=== PATIENT | male | born 1980 | race American Indian/Alaskan Native ===

== ENCOUNTER 2019-12-22 13:20 | Emergency (ER) | payer SELFPAY ==
--- NOTE | 2019-12-22 13:55 | Emergency Department Report ---
Blank Doc - Documentation Documentation: c/o of severe HTN with exertional dyspnea. non compliant with bp medicaitons and smokes tobacco. Plan PLAN EKG, BP control, labs and cant sleep flat.
--- NOTE | 2019-12-22 14:24 | XRay Report ---
CHEST 2 VIEWS INDICATION: Chest Pain. COMPARISON: None FINDINGS: Support devices: None. Heart: Within normal limits. Lungs/pleura: No acute air space or interstitial disease. No pneumothorax. Additional findings: None. IMPRESSION: No acute findings. Signer Name: Kobi Valentino Jr, MD Signed: 12/22/2019 2:19 PM Workstation Name: [id number]
[2019-12-22 14:29] LABS: Basophils % (Auto) 0.6 % (0.0-1.8); Eosinophils # (Auto) 0.3 K/mm3 (0.0-0.4); Eosinophils % (Auto) 5.1 % (0.0-4.3); Hematocrit 46.7 % (35.5-45.6); Hemoglobin 15.7 gm/dl (11.8-15.2); Lymphocytes # (Auto) 2.2 K/mm3 (1.2-5.4); Mean Corpuscular HGB Conc 34 % (32-34); Mean Corpuscular Volume 82 fl (84-94); Monocytes # (Auto) 0.4 K/mm3 (0.0-0.8); Monocytes % (Auto) 5.7 % (0.0-7.3); Platelet Count 293 K/mm3 (140-440); Red Blood Count 5.69 M/mm3 (3.65-5.03); Red Cell Distribution Width 15.5 % (13.2-15.2)
[2019-12-22 14:55] LABS: Alanine Aminotransferase 32 units/L (7-56); BUN/Creatinine Ratio 10; Blood Urea Nitrogen 9 mg/dL (9-20); Hemolysis Index 7
[2019-12-22] MEDS ORDERED: cloNIDine 0.2 MG TAB PO ONE (14:59)
[2019-12-22] MEDS ORDERED: POTASSIUM CHLORIDE ER 20 MEQ TAB PO ONE (15:06)
[2019-12-22 15:10] VITALS: BP 224/196
--- NOTE | 2019-12-22 15:12 | Emergency Department Report ---
HPI - General Chief Complaint: High BP Time Seen by Provider: 12/22/19 13:52 - HPI HPI: Room 5 The patient is a 39-year-old male present with a chief complaint of hypertension. The patient states he had a physical for his job yesterday and was found to be hypertensive. Patient denied complaints. Patient states he has been out of his blood pressure medication for several months. ED Past Medical Hx - Past Medical History Previous Medical History?: No Hx Hypertension: Yes - Surgical History Past Surgical History?: No - Family History Family history: no significant - Social History Smoking Status: Former Smoker (None since August 2019) Substance Use Type: None (Denies illicit drug use) - Medications Home Medications: Home Medications Medication Instructions Recorded Confirmed Last Taken Type amLODIPine 10 mg PO DAILY #90 tab 12/22/19 Unknown Rx hydroCHLOROthiazide [HCTZ] 25 mg PO QDAY #90 tablet 12/22/19 Unknown Rx ED Review of Systems ROS: Stated complaint: HBP Other details as noted in HPI Constitutional: no symptoms reported Eyes: denies: eye pain ENT: denies: throat pain Cardiovascular: denies: chest pain Endocrine: no symptoms reported Gastrointestinal: denies: abdominal pain Genitourinary: denies: dysuria Musculoskeletal: denies: back pain Neurological: denies: headache Physical Exam - Physical Exam Vital Signs: Vital Signs 12/22/19 12/22/19 13:39 15:04 Temperature 97.9 F Pulse Rate 87 Respiratory 20 18 Rate Blood Pressure 230/147 Blood Pressure 230/147 [Right] O2 Sat by Pulse 98 100 Oximetry Physical Exam: GENERAL: The patient is well-developed well-nourished male lying on stretcher not appearing to be in acute distress. [] HEENT: Normocephalic. Atraumatic. Extraocular motions are intact. Patient has moist mucous membranes. NECK: Supple. No meningitic signs are noted. There is no adenopathy noted. CHEST/LUNGS: Clear to auscultation. There is no respiratory distress noted. HEART/CARDIOVASCULAR: Regular. There is no tachycardia. There is no gallop rub or murmur. ABDOMEN: Abdomen is soft, nontender. Patient has normal bowel sounds. There is no abdominal distention. SKIN: There is no rash. There is no edema. There is no diaphoresis. NEURO: The patient is awake, alert, and oriented. The patient is cooperative. The patient has no focal neurologic deficits. The patient has normal speech. Cranial nerves II through XII grossly intact, no drift MUSCULOSKELETAL:There is no evidence of acute injury. ED Course Vital Signs 12/22/19 12/22/19 13:39 15:04 Temperature 97.9 F Pulse Rate 87 Respiratory 20 18 Rate Blood Pressure 230/147 Blood Pressure 230/147 [Right] O2 Sat by Pulse 98 100 Oximetry - Reevaluation(s) Reevaluation #1: 12/22/19 16:27 Blood pressure improved to 144/88 ED Medical Decision Making - Lab Data Result diagrams: 12/22/19 14:12 12/22/19 14:12 Laboratory Tests 12/22/19 12/22/19 14:12 14:12 WBC 6.4 RBC 5.69 H Hgb 15.7 H Hct 46.7 H MCV 82 L MCH 28 MCHC 34 RDW 15.5 H Plt Count 293 Lymph % (Auto) 35.0 [place] % (Auto) 5.7 Eos % (Auto) 5.1 H Baso % (Auto) 0.6 Lymph # 2.2 [place] # 0.4 Eos # 0.3 Baso # 0.0 Seg Neutrophils % 53.6 Seg Neutrophils # 3.4 Sodium 140 Potassium 3.3 L Chloride 106.5 Carbon Dioxide 19 L Anion Gap 18 BUN 9 Creatinine 0.9 Estimated GFR > 60 BUN/Creatinine Ratio 10 Glucose 161 H Calcium 9.0 Total Bilirubin 0.40 AST 22 ALT 32 Alkaline Phosphatase 64 Troponin T < 0.010 Total Protein 7.5 Albumin 4.0 Albumin/Globulin Ratio 1.1 - Radiology Data Radiology results: report reviewed (Chest x-ray), image reviewed (Chest x-ray) interpreted by me: Chest x-ray-no focal infiltrates, no pneumothorax Findings [facility] [address] [place] [address] XRay Report Signed Patient: RIAN PRIDE MR#: [id number] : 1980 Acct:[id number] Age/Sex: 39 / M ADM Date: 12/22/19 Loc: ED Attending Dr: Ordering Physician: DONTRELL WHITT Date of Service: 12/22/19 Procedure(s): XR chest routine 2V Accession Number(s): [id number] cc: DONTRELL WHITT Fluoro Time In Minutes: CHEST 2 VIEWS INDICATION: Chest Pain. COMPARISON: None FINDINGS: Support devices: None. Heart: Within normal limits. Lungs/pleura: No acute air space or interstitial disease. No pneumothorax. Additional findings: None. IMPRESSION: No acute findings. Signer N ministerio: Kobi Valentino Jr, MD Signed: 12/22/2019 2:19 PM Workstation Name: [id number] Transcribed By: TTR Dictated By: KOBI VALENTINO JR, MD Electronically Authenticated By: KOBI VALENTINO JR, MD Signed Date/Time: 12/22/191418 DD/ 18 TD/TT: - Differential Diagnosis Uncontrolled hypertension Critical care attestation.: If time is entered above; I have spent that time in minutes in the direct care of this critically ill patient, excluding procedure time. ED Disposition Clinical Impression: Uncontrolled hypertension Disposition: DC-01 TO HOME OR SELFCARE Is pt being admited?: No Does the pt Need Aspirin: No Condition: Stable Instructions: Hypertension (ED) Additional Instructions: Return to the emergency department should you develop worsening symptoms, inability to tolerate food or liquids, high fever or any other concerns Prescriptions: amLODIPine 10 mg PO DAILY #90 tab hydroCHLOROthiazide [HCTZ] 25 mg PO QDAY #90 tablet Referrals: ZULEYMA DANIELLE MD [Staff Physician] - 3-5 Days [facility] [Outside] - 3-5 Days Time of Disposition: 16:27
== END 2019-12-22 17:00 | disposition home or self-care (01) ==
LOC: ED 13:20
DX: I10 Essential (primary) hypertension (principal); Z87.891 Personal history of nicotine dependence
CPT/HCPCS: 36415; 71046; 80053; 84484; 85025

== ENCOUNTER 2021-09-21 08:11 | Inpatient (IN) | payer SELFPAY ==
[2021-09-21] MEDS ORDERED: hydrALAZINE 20 MG/1 ML INJ IV ONE (08:52)
--- NOTE | 2021-09-21 08:53 | Emergency Department Report ---
ED General Adult HPI - General Chief complaint: Weakness Stated complaint: My blood pressure is high, my body hurts, I have nausea, and chest pain Time Seen by Provider: 09/21/21 08:51 Source: patient, RN notes reviewed, old records reviewed Mode of arrival: Ambulatory Limitations: Physical Limitation - History of Present Illness Initial comments: The patient is a 41-year-old gentleman. He is not known to myself previously. He appears to have a history of morbid obesity and uncontrolled hypertension. The patient presents to the ER today with a few days of body aches, nausea, feeling unsteady, and chest pain, with mild coughing and retching. The patient denies fever, loss of taste and smell. The patient states he does not have an outpatient primary care doctor. The patient does not have a history of obstructive sleep apnea that he is aware of. The patient states his symptoms are constant for the past few days, and gradually getting worse. The chest pain is central, and does not radiate to the back, arms or neck. The patient states the chest pain is not sharp, tearing, or ripping, but he does feel very uncomfortable. -: Gradual, days(s) Location: chest Severity scale (0 -10): 0 Quality: aching Consistency: intermittent Improves with: none Worsens with: none - Related Data Previous Rx's Medication Instructions Recorded Last Taken Type amLODIPine 10 mg PO DAILY #90 tab 12/22/19 Unknown Rx hydroCHLOROthiazide [HCTZ] 25 mg PO QDAY #90 tablet 12/22/19 Unknown Rx Allergies Allergy/AdvReac Type Severity Reaction Status Date / Time No Known Allergies Allergy Verified 12/22/19 13:31 ED Review of Systems ROS: Stated complaint: HIGH BP Other details as noted in HPI Constitutional: malaise, weakness. denies: fever Eyes: denies: eye discharge ENT: denies: epistaxis Respiratory: denies: cough Cardiovascular: chest pain Gastrointestinal: nausea Genitourinary: denies: dysuria Musculoskeletal: myalgia. denies: back pain Neurological: weakness, abnormal gait Psychiatric: anxiety ED Past Medical Hx - Past Medical History Previous Medical History?: Yes Hx Hypertension: Yes - Surgical History Past Surgical History?: Yes Additional Surgical History: sx on femurs - Social History Smoking Status: Former Smoker (None since August 2019) Substance Use Type: None (Denies illicit drug use) - Medications Home Medications: Home Medications Medication Instructions Recorded Confirmed Last Taken Type amLODIPine 10 mg PO DAILY #90 tab 12/22/19 Unknown Rx hydroCHLOROthiazide [HCTZ] 25 mg PO QDAY #90 tablet 12/22/19 Unknown Rx ED Physical Exam - General Limitations: Physical Limitation General appearance: alert, anxious, in distress, obese - Head Head exam: Present: atraumatic, normocephalic - Eye Eye exam: Present: normal appearance, EOMI. Absent: nystagmus - ENT ENT exam: Present: normal exam, normal orophraynx, mucous membranes moist, normal external ear exam - Neck Neck exam: Present: normal inspection, full ROM. Absent: tenderness, meningi smus - Respiratory Respiratory exam: Present: normal lung sounds bilaterally. Absent: respiratory distress, wheezes, rales, rhonchi, stridor, decreased breath sounds - Cardiovascular Cardiovascular Exam: Present: normal rhythm, tachycardia, normal heart sounds. Absent: bradycardia, irregular rhythm, systolic murmur, diastolic murmur, rubs, gallop - GI/Abdominal GI/Abdominal exam: Present: soft. Absent: distended, tenderness, guarding, rebound, rigid, pulsatile mass - Rectal Rectal exam: Present: deferred - Extremities Exam Extremities exam: Present: normal inspection, other (2+ pulses noted in the bilateral upper and lower extremities. There is no palpable cord. negative Homans sign. Muscular compartments are soft. The pelvis is stable.). Absent: tenderness, pedal edema, joint swelling, calf tenderness - Back Exam Back exam: Present: normal inspection, full ROM. Absent: CVA tenderness (R), CVA tenderness (L), paraspinal tenderness, vertebral tenderness - Neurological Exam Neurological exam: Present: alert, oriented X3, abnormal gait (Unsteady gait), other (No facial droop. Tongue midline. Extraocular movements intact bilaterally. Facial sensation intact to light touch in V1, V2, V3 distribution bilaterally. 5 and a 5 strength in 4 extremities. Sensation intact to light touch in 4 extremities.). Absent: motor sensory deficit - Psychiatric Psychiatric exam: Present: anxious - Skin Skin exam: Present: warm, dry, intact, normal color. Absent: rash ED Course Vital Signs 09/21/21 09/21/21 09/21/21 08:34 09:40 09:52 Temperature 98.2 F Pulse Rate 105 H 88 91 H Respiratory 24 12 14 Rate Blood Pressure Blood Pressure 223/132 235/125 220/99 [Right] O2 Sat by Pulse 98 95 98 Oximetry 09/21/21 09/21/21 09:56 10:00 Temperature Pulse Rate 85 95 H Respiratory 12 10 L Rate Blood Pressure 207/95 207/95 Blood Pressure [Right] O2 Sat by Pulse 96 94 Oximetry - Reevaluation(s) Reevaluation #1: 09/21/21 09:53 Differential diagnosis, including but not limited to: Hypertensive emergency, acute coronary syndrome, aortic dissection, Press syndrome, obstructive sleep a pnea, morbid obesity Assessment and plan: 41-year-old gentleman, who is markedly tachycardic, and h ypertensive, who appears very uncomfortable, with an unsteady gait, last known neurologic well time more than 24 hours ago, with chest pain who appears uncomfortable, very concerning for hypertensive emergency. We will treat his pain aggressively, obtain emergent CT scan of the brain to exclude hemorrhage, and emergent CT angiogram chest abdomen pelvis to exclude aortic dissection. Have ordered him for pain medication, nausea medication and nitroglycerin drip. His EKG is not consistent with a STEMI. I suspect that tachycardia is likely secondary to pain and discomfort. He denies travel, surgery, immobilization, DVT/PE risk factors, and he is low risk by Wells criteria for pulmonary embo lism. Reassess after initial data points. Discussed plan of care with the patient, and if no emergent findings noted that would require transfer for higher level of care, patient will be admitted to the medical service for cardiac risk stratification, as well as hypertensive optimization. 09/21/21 11:17 Patient reassessed. He feels much improved. Blood pressure 180/[address] scan of the brain reviewed by myself, I do not appreciate a bleed. CT scan chest abdomen pelvis pending. Laboratory studies demonstrate transaminitis, which is likely a congestive hepatopathy, elevated proBNP, likely secondary to hypertensive cardiomyopathy, and hypokalemia which we will address 09/21/21 11:28 CT scan of the brain officially negative for acute findings. CT angiogram chest abdomen pelvis negative for acute findings. Blood pressure will be held at 180 systolic. Contacted neurology on-call, Dr. Funes. I discussed the patient's history, physical, laboratory studies and imaging studies and overall clinical impression. Assuming no dissection, which has been proven at this time, decrease blood pressure systolic to 180 mmHg. She is in agreement with blood pressure control, and advises that if patient has persistent neurologic symptoms while inpatient, inpatient team may consider getting MRI to evaluate for Press syndrome Contacted cardiology on-call, Dr. Chan. Discussed history, physical, laboratory studies and imaging studies, and clinical impression. [place] [facility] will follow in consultation. Contacted critical care physician on-call, Dr. Shah Discussed the history, physical, laboratory studies imaging studies and clinical impression. She will follow in consultation, and is in agreement with admitting this patient to the critical care unit. Awaiting callback from hospital physician to arrange admission. 09/21/21 11:[address] Green service on the critical care unit. ED Medical Decision Making - Lab Data Result diagrams: 09/21/21 09:26 09/21/21 09:26 Vital Signs 09/21/21 09/21/21 09/21/21 08:34 09:40 09:52 Temperature 98.2 F Pulse Rate 105 H 88 91 H Respiratory 24 12 14 Rate Blood Pressure 223/132 235/125 220/99 [Right] O2 Sat by Pulse 98 95 98 Oximetry Lab Results 09/21/21 09/21/21 09/21/21 Range/Units 09:26 09:26 09:26 WBC 6.2 (4.5-11.0) K/mm3 RBC 6.12 H (3.65-5.03) M/mm3 Hgb 15.5 H (11.8-15.2) gm/dl Hct 48.9 H (35.5-45.6) % MCV 80 L (84-94) fl MCH 25 L (28-32) pg MCHC 32 (32-34) % RDW 16.5 H (13.2-15.2) % Plt Count 278 (140-440) K/mm3 Lymph % (Auto) 29.5 (13.4-35.0) % [place] % (Auto) 13.1 H (0.0-7.3) % Eos % (Auto) 0.4 (0.0-4.3) % Baso % (Auto) 0.9 (0.0-1.8) % Lymph # (Auto) 1.8 (1.2-5.4) K/mm3 [place] # (Auto) 0.8 (0.0-0.8) K/mm3 Eos # (Auto) 0.0 (0.0-0.4) K/mm3 Baso # (Auto) 0.1 (0.0-0.1) K/mm3 Seg Neutrophils % 56.1 (40.0-70.0) % Seg Neutrophils # 3.5 (1.8-7.7) K/mm3 PT 16.1 H (12.2-14.9) Sec. INR 1.17 H (0.87-1.13) APTT 30.7 (24.2-36.6) Sec. Thrombin Time 18.7 (15.1-19.6) Sec. Sodium 139 (137-145) mmol/L Potassium 3.1 L (3.6-5.0) mmol/L Chloride 99.9 (98-107) mmol/L Carbon Dioxide 25 (22-30) mmol/L Anion Gap 17 mmol/L BUN 6 L (9-20) mg/dL Creatinine 0.7 L (0.8-1.3) mg/dL Estimated GFR > 60 ml/min BUN/Creatinine Ratio 9 % Glucose 123 H (75-100) mg/dL Calcium 8.8 (8.4-10.2) mg/dL Magnesium (1.7-2.3) mg/dL Total Bilirubin 0.50 (0.1-1.2) mg/dL AST 337 H (5-40) units/L ALT 527 H (7-56) units/L Alkaline Phosphatase 134 H (35-129) units/L Total Creatine Kinase 2846 H (55-170) units/L CK-MB (CK-2) 9.6 H (0.0-4.0) ng/mL CK-MB (CK-2) Rel Index 0.3 (0-4) Troponin T < 0.010 (0.00-0.029) ng/mL Total Protein 7.5 (6.3-8.2) g/dL Albumin 4.4 (3.9-5) g/dL Albumin/Globulin Ratio 1.4 % 09/21/21 Range/Units 09:26 WBC (4.5-11.0) K/mm3 RBC (3.65-5.03) M/mm3 Hgb (11.8-15.2) gm/dl Hct (35.5-45.6) % MCV (84-94) fl MCH (28-32) pg MCHC (32-34) % RDW (13.2-15.2) % Plt Count (140-440) K/mm3 Lymph % (Auto) (13.4-35.0) % [place] % (Auto) (0.0-7.3) % Eos % (Auto) (0.0-4.3) % Baso % (Auto) (0.0-1.8) % Lymph # (Auto) (1.2-5.4) K/mm3 [place] # (Auto) (0.0-0.8) K/mm3 Eos # (Auto) (0.0-0.4) K/mm3 Baso # (Auto) (0.0-0.1) K/mm3 Seg Neutrophils % (40.0-70.0) % Seg Neutrophils # (1.8-7.7) K/mm3 PT (12.2-14.9) Sec. INR (0.87-1.13) APTT (24.2-36.6) Sec. Thrombin Time (15.1-19.6) Sec. Sodium (137-145) mmol/L Potassium (3.6-5.0) mmol/L Chloride (98-107) mmol/L Carbon Dioxide (22-30) mmol/L Anion Gap mmol/L BUN (9-20) mg/dL Creatinine (0.8-1.3) mg/dL Estimated GFR ml/min BUN/Creatinine Ratio % Glucose (75-100) mg/dL Calcium (8.4-10.2) mg/dL Magnesium 1.90 (1.7-2.3) mg/dL Total Bilirubin (0.1-1.2) mg/dL AST (5-40) units/L ALT (7-56) units/L Alkaline Phosphatase (35-129) units/L Total Creatine Kinase 2889 H (55-170) units/L CK-MB (CK-2) (0.0-4.0) ng/mL CK-MB (CK-2) Rel Index (0-4) Troponin T (0.00-0.029) ng/mL Total Protein (6.3-8.2) g/dL Albumin (3.9-5) g/dL Albumin/Globulin Ratio % Vital Signs 09/21/21 09/21/21 09/21/21 08:34 09:40 09:52 Temperature 98.2 F Pulse Rate 105 H 88 91 H Respiratory 24 12 14 Rate Blood Pressure Blood Pressure 223/132 235/125 220/99 [Right] O2 Sat by Pulse 98 95 98 Oximetry 09/21/21 09/21/21 09:56 10:00 Temperature Pulse Rate 85 95 H Respiratory 12 10 L Rate Blood Pressure 207/95 207/95 Blood Pressure [Right] O2 Sat by Pulse 96 94 Oximetry - EKG Data -: EKG Interpreted by [place]s EKG shows normal: sinus rhythm Rate: normal - EKG Data When compared to previous EKG there are: previous EKG unavailable 09/21/21 09:55 The EKG is interpreted at 09: 20 Sinus rhythm, 97 bpm. Left axis deviation, left anterior fascicular block, normal P wave axis, poor R wave progression, QTC is prolonged, nonspecific ST abnormality. This is an abnormal EKG. This is not a STEMI. There is no prior EKG available for comparison - Radiology Data Radiology results: pending, report reviewed, image reviewed NONENHANCED CT SCAN OF THE HEAD: INDICATION / CLINICAL INFORMATION: 41 years Male; Extreme hypertension and dizziness.. TECHNIQUE: Routine CT head without contrast. All CT scans at this location are performed using CT dose reduction for ALARA by means of automated exposure control. COMPARISON: None. FINDINGS: BRAIN / INTRACRANIAL CONTENTS: No acute hemorrhage, mass effect, midline shift, hydrocephalus, or acute, large territorial infarct. No chronic infarct or focal atrophy. Normal brain volume and ventricular/sulcal size for age. No significant white matter abnormality. CRANIOCERVICAL JUNCTION: No significant abnormality. ORBITS: No significant abnormality of visualized orbits. SINUSES / MASTOIDS: No significant abnormality of the visualized paranasal sinuses or mastoid air cells. ADDITIONAL FINDINGS: Supraorbital swelling anteriorly IMPRESSION: No acute focal parenchymal lesion in the brain Signer Name: Drew Zuniga MD Signed: 09/21/2021 10:18 AM Workstation Name: [id number] CTA CHEST, ABDOMEN, AND PELVIS (AORTIC DISSECTION) INDICATION / CLINICAL INFORMATION: acute chest pain, htn, dissection protocol. TECHNIQUE: Axial CT images were obtained through the chest, abdomen, and pelvis before and after injection of 100 cc of Omnipaque 350 IV contrast. 3 plane MIP and/or 3D reconstructions were produced. All CT scans at this location are performed using CT dose reduction for ALARA by means of automated exposure control. COMPARISON: None available. FINDINGS: HEART: - Size: Normal. - [place] Coronary Atherosclerosis: None. - Pericardium: No pericardial effusion. THORACIC AORTA: - Dissection: No dissection. - Aneurysm: No aneurysm or pseudoaneurysm. - Ath erosclerosis: No significant atherosclerosis. - Location of Thoracic Aorta: 2.5 cm to the right of midline; 1.7 cm deep to posterior sternum; 5.8 cm deep to the skin. 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 No significant atherosclerosis. PULMONARY ARTERIES: No pulmonary emboli. CHEST VEINS: Single SVC of normal caliber as visualized to the right of midline. No significant abnormality. ABDOMINAL AORTA: - Dissection: No dissection. - Aneurysm: No aneurysm or pseudoaneurysm. - Atherosclerosis: No significant atherosclerosis. CELIAC TRUNK: No significant abnormality. SUPERIOR MESENTERIC ARTERY: No significant abnormality. RENAL ARTERIES: No significant abnormality. INFERIOR MESENTERIC ARTERY: No significant abnormality. RIGHT ILIAC ARTERIES: No acute abnormality. No significant atherosclerosis. LEFT ILIAC ARTERIES: No acute abnormality. No significant atherosclerosis. RIGHT FEMORAL ARTERIES: No acute abnormality. No significant a therosclerosis. LEFT FEMORAL ARTERIES: No acute abnormality. No significant atherosclerosis. ABDOMINOPELVIC VEINS: Single IVC of normal caliber to the right of midline. No significant abnormality. ADDITIONAL CHEST FINDINGS: No significant additional findings. Lungs are clear. There is no pneumothorax. No adenopathy is seen. ADDITIONAL ABDOMINOPELVIC FINDINGS: The liver, spleen, pancreas, right adrenal gland, kidneys, and bowel show no acute abnormality. There is no obstruction, inflammation, or free air. There is a 1.6 cm left adrenal nodule SKELETAL SYSTEM: Intramedullary nails are noted in the femurs. No acute osseous abnormality is seen. IMPRESSION: 1. There is no dissection. No acute abnormality is seen. 2. There is a 1.6 cm left adrenal nodule which is indeterminate. Signer Name: Guy Cannon MD Signed: 09/21/2021 10:17 AM Workstation Name: [id number] Critical Care Time: Yes Critical care time in (mins) excluding proc time.: 45 Critical care attestation.: If time is entered above; I have spent that time in minutes in the direct care of this critically ill patient, excluding procedure time. ED Disposition Clinical Impression: Hypertensive emergency, Acute chest pain, Transaminitis, Morbid obesity Disposition: ADMITTED INPATIENT Is pt being admited?: Yes Does the pt Need Aspirin: Yes Condition: Serious Instructions: Chest Pain (ED), Hypertension (ED) Referrals: PRIMARY CARE, [Primary Care Provider] - 3-5 Days Heart Score - HEART Score History: Moderately suspicious EKG: Non-specific Age: < 45 Risk factors: > 3 risk factors or hx of atherosclerotic disease Troponin: < normal limit HEART Score: 4 - EKG Read Time Time EKG Completed: 09:20 EKG Read Time: 09:20 - Critical Actions Critical Actions: 4-6 pts:12-16.6% risk of adverse cardiac event. Should be admitted
[2021-09-21] MEDS ORDERED: MORPHINE 4 MG/1 ML INJ IV ONE (09:11)
[2021-09-21] MEDS ORDERED: ONDANSETRON 4 MG/2 ML INJ IV ONE (09:11)
[2021-09-21] MEDS ORDERED: NITROGLYCERIN DRIP 50 MG/250 ML BOTTLE IV ONE (09:11)
[2021-09-21 10:06] LABS: Basophils # (Auto) 0.1 K/mm3 (0.0-0.1); Basophils % (Auto) 0.9 % (0.0-1.8); Eosinophils % (Auto) 0.4 % (0.0-4.3); Hematocrit 48.9 % (35.5-45.6); Hemoglobin 15.5 gm/dl (11.8-15.2); Lymphocytes # (Auto) 1.8 K/mm3 (1.2-5.4); Lymphocytes % (Auto) 29.5 % (13.4-35.0); Mean Corpuscular HGB Conc 32 % (32-34); Mean Corpuscular Volume 80 fl (84-94); Monocytes # (Auto) 0.8 K/mm3 (0.0-0.8); Monocytes % (Auto) 13.1 % (0.0-7.3); Platelet Count 278 K/mm3 (140-440); Red Blood Count 6.12 M/mm3 (3.65-5.03); Red Cell Distribution Width 16.5 % (13.2-15.2)
[2021-09-21 10:07] LABS: INR 1.17 (0.87-1.13)
[2021-09-21 10:08] LABS: Partial Thromboplastin Time 30.7 Sec. (24.2-36.6); Thrombin Time 18.7 Sec. (15.1-19.6)
[2021-09-21 10:29] LABS: Alanine Aminotransferase 527 units/L (7-56); Albumin 4.4 g/dL (3.9-5); Blood Urea Nitrogen 6 mg/dL (9-20); Calcium 8.8 mg/dL (8.4-10.2); Creatine Kinase MB 9.6 ng/mL (0.0-4.0); Hemolysis Index 9
[2021-09-21 10:36] LABS: BUN/Creatinine Ratio 9
--- NOTE | 2021-09-21 11:16 | Emergency Department Report ---
Blank Doc - Documentation Documentation: [place] [facility] Consult Note # Demographics Consult Type: General Neurology Patient Location: Emergency Room First Name: Herbie Last Name: Jack Date of : 1980 Age: 41 Gender: Male Facility: [facility] Time of Initial Page (Eastern Time): 09/21/2021, 11:03 Time of Return Call (Eastern Time): 09/21/2021, 11:03 Phone Only Consult: 41yo M present with elevated BP, nausea, dizziness and atypical chest pain. BP was very elevated on arrival. pt to be admitted for BP control. discussed ok to lower BP per standard and monitor for any neuro symptoms. treating team might consider MRI brain if neuro symptoms persist # HPI History: 41yo M present with elevated BP, nausea, dizziness and atypical chest pain. BP was very elevated on arrival. # PMH-FH-SH Past Medical History: hypertension obese # [employer]istics Telemedicine: phone only
--- NOTE | 2021-09-21 11:21 | Cat Scan Report ---
CTA CHEST, ABDOMEN, AND PELVIS (AORTIC DISSECTION) INDICATION / CLINICAL INFORMATION: acute chest pain, htn, dissection protocol. TECHNIQUE: Axial CT images were obtained through the chest, abdomen, and pelvis before and after inje ction of 100 cc of Omnipaque 350 IV contrast. 3 plane MIP and/or 3D reconstructions were produced. Al l CT scans at this location are performed using CT dose reduction for ALARA by means of automated exp osure control. COMPARISON: None available. FINDINGS: HEART: - Size: Normal. - [place] Coronary Atherosclerosis: None. - Pericardium: No pericardial effusion. THORACIC AORTA: - Dissection: No dissection. - Aneurysm: No aneurysm or pseudoaneurysm. - Atherosclerosis: No significant atherosclerosis. - Location of Thoracic Aorta: 2.5 cm to the right of midline; 1.7 cm deep to posterior sternum; 5.8 c m deep to the skin. 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 No signific ant atherosclerosis. PULMONARY ARTERIES: No pulmonary emboli. CHEST VEINS: Single SVC of normal caliber as visualized to the right of midline. No significant abnor mality. ABDOMINAL AORTA: - Dissection: No dissection. - Aneurysm: No aneurysm or pseudoaneurysm. - Atherosclerosis: No significant atherosclerosis. CELIAC TRUNK: No significant abnormality. SUPERIOR MESENTERIC ARTERY: No significant abnormality. RENAL ARTERIES: No significant abnormality. INFERIOR MESENTERIC ARTERY: No significant abnormality. RIGHT ILIAC ARTERIES: No acute abnormality. No significant atherosclerosis. LEFT ILIAC ARTERIES: No acute abnormality. No significant atherosclerosis. RIGHT FEMORAL ARTERIES: No acute abnormality. No significant atherosclerosis. LEFT FEMORAL ARTERIES: No acute abnormality. No significant atherosclerosis. ABDOMINOPELVIC VEINS: Single IVC of normal caliber to the right of midline. No significant abnormalit y. ADDITIONAL CHEST FINDINGS: No significant additional findings. Lungs are clear. There is no pneumotho rax. No adenopathy is seen. ADDITIONAL ABDOMINOPELVIC FINDINGS: The liver, spleen, pancreas, right adrenal gland, kidneys, and yannick wel show no acute abnormality. There is no obstruction, inflammation, or free air. There is a 1.6 cm left adrenal nodule SKELETAL SYSTEM: Intramedullary nails are noted in the femurs. No acute osseous abnormality is seen. IMPRESSION: 1. There is no dissection. No acute abnormality is seen. 2. There is a 1.6 cm left adrenal nodule which is indeterminate. Signer Name: Guy Cannon MD Signed: 09/21/2021 11:17 AM Workstation Name: [id number]
--- NOTE | 2021-09-21 11:23 | Cat Scan Report ---
NONENHANCED CT SCAN OF THE HEAD: INDICATION / CLINICAL INFORMATION: 41 years Male; Extreme hypertension and dizziness.. TECHNIQUE: Routine CT head without contrast. All CT scans at this location are performed using CT dos e reduction for ALARA by means of automated exposure control. COMPARISON: None. FINDINGS: BRAIN / INTRACRANIAL CONTENTS: No acute hemorrhage, mass effect, midline shift, hydrocephalus, or acu te, large territorial infarct. No chronic infarct or focal atrophy. Normal brain volume and ventricul ar/sulcal size for age. No significant white matter abnormality. CRANIOCERVICAL JUNCTION: No significant abnormality. ORBITS: No significant abnormality of visualized orbits. SINUSES / MASTOIDS: No significant abnormality of the visualized paranasal sinuses or mastoid air cem ls. ADDITIONAL FINDINGS: Supraorbital swelling anteriorly IMPRESSION: No acute focal parenchymal lesion in the brain Signer Name: Drew Zuniga MD Signed: 09/21/2021 11:18 AM Workstation Name: [id number]
[2021-09-21] MEDS ORDERED: ASPIRIN 81 MG TAB CHEW PO ONE (11:32)
[2021-09-21] MEDS ORDERED: SODIUM CHLORIDE 0.9% 500 ML 500 ML ONE (12:09)
[2021-09-21] MEDS: POTASSIUM CHLORIDE 10 MEQ 10 MEQ/100 ML BAG IV SCH ×4 (12:16→17:17)
--- NOTE | 2021-09-21 13:29 | History and Physical Report ---
History of Present Illness Chief complaint: I do not feel good History of present illness: 41 YO Male with HTN, Obesity Hypoventilation Syndrome, Medication Noncompliance presents to ED for evaluation. Patient reports "I do not feel good". Patient states that he has experienced chest discomfort, weakness, body aches, feeling unsteady over the past 3 days with persistent and intermittent symptoms over the same timeframe. Patient transported to [facility] via private vehicle for further care and evaluation of the aforementioned symptoms. The patient was seen and evaluated in the emergency department. All lab and imaging studies reviewed. Patient was found to have a blood pressure of 235/125 which is consistent with hypertensive emergency suspected secondary to medication noncompliance. Patient also found to have rhabdomyolysis, and elevated liver function tests. Patient initiated on nitro drip with mild improvement in patient blood pressure. Patient subsequently initiated on nicardipine drip and admitted to [facility] for further care due to increased risk of worsening symptoms. Patient denies fever, chills, chest pain, palpitation, productive cough, skin rash, recent ill contacts, unilateral leg swelling, calf pain, individual/family history of DVT/PE/bleeding/blood clotting disorders, or known exposure to COVID-19. Patient denies nicotine use, alcohol use, or use of herbal medication. No prior admission for review. All medication listed at time of admission has been reconciled. Advanced care planning conducted in ED. Past History Past Medical History: hypertension, other (see Hpi) Past Surgical History: Other (Leg surgery) Social history: single Family history: diabetes, hypertension Medications and Allergies Allergies Allergy/AdvReac Type Severity Reaction Status Date / Time No Known Allergies Allergy Verified 12/22/19 13:31 Home Medications Medication Instructions Recorded Confirmed Last Taken Type amLODIPine 10 mg PO DAILY #90 tab 12/22/19 Unknown Rx hydroCHLOROthiazide [HCTZ] 25 mg PO QDAY #90 tablet 12/22/19 Unknown Rx Active Meds: Active Medications Amlodipine Besylate (Amlodipine 10 Mg Tab) 10 mg PO QDAY [facility] Hydralazine HCl (Hydralazine 20 Mg/1 Ml Inj) 10 mg IV Q6H PRN PRN Reason: Hypertension Hydrochlorothiazide (Hydrochlorothiazide 25 Mg Tab) 25 mg PO QDAY [facility]EB[facility] Nitroglycerin/Dextrose (Tridil Drip 50mg/250ml) 50 mg in 250 mls @ 3 mls/hr IV TITR ONE; Protocol Stop: 09/24/21 20:30 Last Admin: 09/21/21 09:39 Dose: 10 mcg/min, 3 mls/hr Documented by: Potassium Chloride (Kcl 10meq/100ml) 10 meq in 100 mls @ 100 mls/hr IV Q1H ESTEBAN Stop: 09/21/21 14:59 Last Admin: 09/21/21 12:16 Dose: 100 mls/hr Documented by: Review of Systems Constitutional: weakness, no weight loss, no weight gain, no fever, no chills Ears, nose, mouth and throat: no ear pain, no ear discharge, no tinnitis, no decreased hearing, no nose pain Cardiovascular: no chest pain, no orthopnea, no palpitations, no rapid/irregular heart beat, no edema, no syncope Respiratory: no cough, no excessive sputum, no shortness of breath Gastrointestinal: no abdominal pain, no nausea, no vomiting, no constipation, no change in bowel habits Genitourinary Male: no hematuria, no flank pain, no discharge, no urinary frequency, no urinary hesitancy, no incontinence Rectal: no pain, no incontinence Musculoskeletal: no neck stiffness, no neck pain, no arm numbness/tingling, no low back pain, no shooting leg pain Integumentary: no rash, no pruritis, no sores, no boils Neurological: no head injury, no transient paralysis, no paralysis, no weakness, no numbness, no seizures, no tremors Psychiatric: no anxiety, no change in sleep habits, no insomnia, no hypersomnia, no change in appetite, no change in libido Endocrine: no cold intolerance, no excessive thirst, no polydipsia, no polyuria, no nocturia, no excessive sweating Hematologic/Lymphatic: no easy bruising, no lymphadenopathy Allergic/Immunologic: no urticaria, no allergic rhinitis, no wheezing, no anap hylaxis, no angioedema Exam - Constitutional Vitals: Temp Pulse Resp BP Pulse Ox 98.2 F 97 H 11 L 194/95 96 09/21/21 08:34 09/21/21 12:06 09/21/21 13:00 09/21/21 13:00 09/21/21 13:00 General appearance: Present: mild distress, obese - EENT Eyes: Present: PERRL ENT: hearing intact, clear oral mucosa - Neck Neck: Present: supple, normal ROM - Respiratory Respiratory effort: normal Respiratory: bilateral: CTA - Cardiovascular Heart Sounds: Present: S1 & S2. Absent: rub, click - Extremities Extremities: pulses symmetrical, No edema Peripheral Pulses: within normal limits - Abdominal General gastrointestinal: Present: soft, non-tender, non-distended, normal bowel sounds Male genitourinary: Present: normal - Integumentary Integumentary: Present: clear, warm, dry - Musculoskeletal Musculoskeletal: gait normal, strength equal bilaterally - Psychiatric Psychiatric: appropriate mood/affect, intact judgment & insight - Neurologic Neurologic: CNII-XII intact, moves all extremities HEART Score - HEART Score EKG: Non-specific Age: < 45 Risk factors: > 3 risk factors or hx of atherosclerotic disease Troponin: Troponin T < 0.010 ng/mL (0.00-0.029) 09/21/21 09:26 Troponin: < normal limit - Critical Actions Critical Actions: 4-6 pts:12-16.6% risk of adverse cardiac event. Should be admitted Results - Labs CBC & Chem 7: 09/21/21 09:26 09/21/21 09:26 Labs: Abnormal lab results 09/21/21 09/21/21 09/21/21 Range/Units 09:26 09:26 09:26 RBC 6.12 H (3.65-5.03) M/mm3 Hgb 15.5 H (11.8-15.2) gm/dl Hct 48.9 H (35.5-45.6) % MCV 80 L (84-94) fl MCH 25 L (28-32) pg RDW 16.5 H (13.2-15.2) % [place] % (Auto) 13.1 H (0.0-7.3) % PT 16.1 H (12.2-14.9) Sec. INR 1.17 H (0.87-1.13) Potassium 3.1 L (3.6-5.0) mmol/L BUN 6 L (9-20) mg/dL Creatinine 0.7 L (0.8-1.3) mg/dL Glucose 123 H (75-100) mg/dL AST 337 H (5-40) units/L ALT 527 H (7-56) units/L Alkaline Phosphatase 134 H (35-129) units/L Total Creatine Kinase 2846 H (55-170) units/L CK-MB (CK-2) 9.6 H (0.0-4.0) ng/mL 09/21/21 Range/Units 09:26 RBC (3.65-5.03) M/mm3 Hgb (11.8-15.2) gm/dl Hct (35.5-45.6) % MCV (84-94) fl MCH (28-32) pg RDW (13.2-15.2) % [place] % (Auto) (0.0-7.3) % PT (12.2-14.9) Sec. INR (0.87-1.13) Potassium (3.6-5.0) mmol/L BUN (9-20) mg/dL Creatinine (0.8-1.3) mg/dL Glucose (75-100) mg/dL AST (5-40) units/L ALT (7-56) units/L Alkaline Phosphatase (35-129) units/L Total Creatine Kinase 2889 H (55-170) units/L CK-MB (CK-2) (0.0-4.0) ng/mL Assessment and Plan - Patient Problems (1) Hypertensive emergency Current Visit: Yes Status: Acute Plan to address problem: Patient admitted to IMCU and initiated on nicardipine drip, continue medical management, blood pressure check as per nursing care protocol: Supportive care. Titrate nicardipine drip to systolic blood pressure less than 135 mmHg. Urine drug screen. (2) Rhabdomyolysis Current Visit: Yes Status: Acute Qualifiers: Encounter type: initial encounter Plan to address problem: Supportive care, IV fluid resuscitation therapy, repeat CK level in a.m. (3) Obesity hypoventilation syndrome Current Visit: Yes Status: Acute Plan to address problem: Balanced diet, increase physical activity at discharge, outpatient pulmonary follow-up for sleep study. (4) Hypokalemia Current Visit: Yes Status: Acute Plan to address problem: Repleted in ED. Repeat BMP in a.m. (5) Noncompliance Current Visit: Yes Status: Acute Plan to address problem: Patient counseled regarding medication noncompliance. Patient informed of increased risk of worsening symptoms and increased risk of heart failure and with continued noncompliance. Patient acknowledges understanding in structions. (6) DVT prophylaxis Current Visit: Yes Status: Acute Plan to address problem: SCDs bilateral lower extremities while in bed. (7) Advance care planning Current Visit: Yes Status: Acute Plan to address problem: Disease education conducted, care plan discussed, diagnoses discussed, prognosis discussed, patient is full code. Patient informed of increased risk of worsening symptoms or development of heart failure and early if continued noncompliance and lack of outpatient medical follow-up. Patient acknowledges understanding instructions. +30 minutes.
[2021-09-21 13:46] LABS: Bilirubin,Urine NEG (Negative); Blood,Urine SM (Negative); Color,Urine Yellow (Yellow); Mucus,Urine FEW /HPF; Urobilinogen,Urine < 2.0 mg/dL (<2.0); WBC,Urine < 1.0 /HPF (0.0-6.0)
[2021-09-21 13:52] LABS: Amphetamine Screen,Urine Negative; Benzodiazepines Screen,Urine Negative; Cannabinoid Screen,Urine Negative; Cocaine Screen,Urine Negative; Methadone Screen,Urine Negative; Opiate Screen,Urine Negative
[2021-09-21] MEDS: amLODIPine 10 MG TAB PO SCH (13:59)
[2021-09-21] MEDS ORDERED: SODIUM CHLORIDE 0.9% 1000 ML 1,000 ML ONE (14:01)
[2021-09-21] MEDS ORDERED: oxyCODONE /ACETAMINOPHEN 5-325MG TAB PO PRN (14:11)
[2021-09-21] MEDS ORDERED: HYDROmorphone 1 MG/1 ML INJ IV PRN (14:11)
[2021-09-21] MEDS ORDERED: ACETAMINOPHEN 325 MG TAB PO PRN (14:11)
[2021-09-21] MEDS: hydrALAZINE 20 MG/1 ML INJ IV PRN (14:21)
[2021-09-21] MEDS: niCARdipine 50 MG in SODIUM CHLORIDE 0.9% 250ML 230 ML IV SCH (18:30)
[2021-09-21] MEDS ORDERED: ZOLPIDEM 5 MG TAB PO PRN (22:12)
[2021-09-21] MEDS ORDERED: ZOLPIDEM 5 MG TAB PO STA (22:12)
[2021-09-22] MEDS: hydrALAZINE 20 MG/1 ML INJ IV PRN ×3 (05:22→20:01)
[2021-09-22] MEDS: niCARdipine 50 MG in SODIUM CHLORIDE 0.9% 250ML 230 ML IV SCH (05:22)
[2021-09-22 05:52] LABS: Blood Urea Nitrogen 6 mg/dL (9-20); Calcium 8.5 mg/dL (8.4-10.2); Hemolysis Index 12
[2021-09-22 05:56] LABS: BUN/Creatinine Ratio 9
--- NOTE | 2021-09-22 07:52 | Consultation ---
History of Present Illness Consult date: 09/22/21 Requesting physician: HAIR THAO Reason for consult: other (Hypertensive urgency requiring nitroglycerine infusion) History of present illness: 41 YO Male with HTN, Obesity Hypoventilation Syndrome, Medication Noncompliance presents to ED for evaluation. Patient reports "I do not feel good". Patient states that he has experienced chest discomfort, weakness, body aches, feeling unsteady over the past 3 days with persistent and intermittent symptoms over the same timeframe. Patient transported to [facility] via private vehicle for further care and evaluation of the aforementioned symptoms. The patient was seen and evaluated in the emergency department. All lab and imaging studies reviewed. Patient was found to have a blood pressure of 235/125 which is consistent with hypertensive emergency suspected secondary to medication noncompliance. He states he has no insurance coverage. Patient also found to have rhabdomyolysis, and elevated liver function tests. Patient was initiated on nitro drip with mild improvement in patient blood pressure. Patient subsequently initiated on nicardipine drip and admitted to ICU for further care due to increased risk of worsening symptoms. Patient denies fever, chills, chest pain, palpitation, productive cough, skin rash, recent ill contacts, unilateral leg swelling, calf pain, individual/family history of DVT/PE/bleeding/blood clotting disorders, or known exposure to COVID- 19. Patient denies nicotine use, alcohol use, or use of herbal medication Past History Past Medical History: hypertension, other (see Hpi) Past Surgical History: Other (Leg surgery) Social history: single Family history: diabetes, hypertension Medications and Allergies Allergies Allergy/AdvReac Type Severity Reaction Status Date / Time No Known Allergies Allergy Verified 12/22/19 13:31 Home Medications Medication Instructions Recorded Confirmed Last Taken Type amLODIPine 10 mg PO DAILY #90 tab 12/22/19 09/22/21 Unknown Rx hydroCHLOROthiazide [HCTZ] 25 mg PO QDAY #90 tablet 12/22/19 09/22/21 Unknown Rx Active Meds: Active Medications Acetaminophen (Acetaminophen 325 Mg Tab) 650 mg PO Q6H PRN PRN Reason: Pain MILD(1-3)/Fever >100.5/[place] Amlodipine Besylate (Amlodipine 10 Mg Tab) 10 mg PO QDAY ESTEBAN Last Admin: 09/21/21 13:59 Dose: 10 mg Documented by: Hydralazine HCl (Hydralazine 20 Mg/1 Ml Inj) 10 mg IV Q6H PRN PRN Reason: Hypertension Last Admin: 09/22/21 05:22 Dose: 10 mg Documented by: Hydrochlorothiazide (Hydrochlorothiazide 25 Mg Tab) 25 mg PO QDAY [facility] Hydromorphone HCl (Hydromorphone 1 Mg/1 Ml Inj) 0.5 mg IV Q23H PRN PRN Reason: Pain , Severe (7-10) Nicardipine HCl 50 mg/ Sodium (Chloride) 250 mls @ 25 mls/hr IV TITR ESTEBAN; Protocol Last Admin: 09/22/21 05:22 Dose: 10 mg/hr, 50 mls/hr Documented by: Potassium Chloride (Kcl 10meq/100ml) 10 meq in 100 mls @ 100 mls/hr IV Q1H ESTEBAN Stop: 09/22/21 11:59 Oxycodone/Acetaminophen (Oxycodone /Acetaminophen 5-325mg Tab) 1 tab PO Q16H PRN PRN Reason: Pain, Moderate (4-6) Sodium Chloride (Sodium Chloride 0.9% 10 Ml Flush Syringe) 10 ml IV BID ESTEBAN Last Admin: 09/21/21 21:48 Dose: 10 ml Documented by: Sodium Chloride (Sodium Chloride 0.9% 10 Ml Flush Syringe) 10 ml IV PRN PRN PRN Reason: LINE FLUSH Review of Systems All systems: negative (as documented in HPI) Physical Examination Vital signs: Vital Signs Temp Pulse Resp BP Pulse Ox 98.2 F 105 H 24 223/132 98 09/21/21 08:34 09/21/21 08:34 09/21/21 08:34 09/21/21 08:34 09/21/21 08:34 General appearance: no acute distress, alert, other (morbidly obese) Eyes: non-icteric ENT: oropharynx moist Neck: supple, no lymphadenopathy, no JVD Effort: mildly labored Ascultation: Bilateral: clear, diminished breath sounds Cardiovascular: regular rate and rhythm (tachycardia), other (S1,S2) Gastrointestinal: normoactive bowel sounds, soft, non-tender, non-distended Integumentary: normal Extremities: no cyanosis, no edema, pink and warm, pulses normal Musculoskeletal: no deformities Gait: normal gait normal mental status, non-focal exam, pupils equal and round, CN II-XII normal, motor strength normal and mood appropriate, affect normal Results - Laboratory Findings CBC and BMP: 09/23/21 04:32 09/23/21 04:32 PT/INR, D-dimer PT 16.1 Sec. (12.2-14.9) H 09/21/21 09:26 INR 1.17 (0.87-1.13) H 09/21/21 09:26 Abnormal lab findings: Abnormal Labs 09/21/21 09/21/21 09/21/21 09:26 09:26 09:26 RBC 6.12 H Hgb 15.5 H Hct 48.9 H MCV 80 L MCH 25 L RDW 16.5 H [place] % (Auto) 13.1 H PT 16.1 H INR 1.17 H Potassium 3.1 L BUN 6 L Creatinine 0.7 L Glucose 123 H POC Glucose AST 337 H ALT 527 H Alkaline Phosphatase 134 H Total Creatine Kinase 2846 H CK-MB (CK-2) 9.6 H Urine pH 09/21/21 09/21/21 09/21/21 09:26 20:25 Unknown RBC Hgb Hct MCV MCH RDW [place] % (Auto) PT INR Potassium BUN Creatinine Glucose POC Glucose 106 H AST ALT Alkaline Phosphatase Total Creatine Kinase 2889 H CK-MB (CK-2) Urine pH 8.0 H 09/22/21 04:33 RBC Hgb Hct MCV MCH RDW [place] % (Auto) PT INR Potassium 3.1 L BUN 6 L Creatinine 0.7 L Glucose 109 H POC Glucose AST ALT Alkaline Phosphatase Total Creatine Kinase 3800 H CK-MB (CK-2) Urine pH - Diagnostic Findings Chest x-ray: image reviewed Assessment and Plan This is a 41-year-old male with HTN, OHS and medical noncompliance admitted with hypertensive urgency and rhabdomyolysis Hypertensive emergency,h/o HTN Morbid obesity Probable sleep apnea, STOPBANG >5 Rhabdomyolysis, hypokalemia - on nicardipine drip due to unresponsiveness to nitroglycerin drip in the ED - amlodipine and hydrochlorothiazide( home medications), add metoprolol to help with blood pressure and heart rate control -Added metoprolol today -Blood pressure monitor per protocol -Echocardiogram pending -Patient complained of epigastric chest pain today and twelve-lead ECG was done -No change noted from prior -Elevation in trop noted but maybe secondary to rhabdo -Chest CTA showed no dissection or acute abnormality, a 1.6 cm adrenal nodule noted -Abdomen/pelvis CTA shows no dissection of the aorta, 1.6 cm left adrenal nodule noted which is indeterminate -Out patietn pulmoanry follow up for evalution and treatment for sleep apnea -Weight loss and life style modifications -Low sodium diet -Discussed the need for medical compliance- [facility] has a program for generic medications -Replete potassium, trend cardiac enzymes -VTE prophylaxis- subcut heparin -SCDs to bilateral lower extremity while in bed -Monitor fever and WBC curve Discussed care plan with nursing staff and cardiology service The high probability of a clinically significant, sudden or life threatening deterioration of the [cardiovascular ] system(s) required my full and direct attention, intervention and personal management. The aggregate critical care time was [35] minutes. This time is in addition to time spent performing reported procedures but includes the following: [x] Data Review and interpretation [x] Patient assessment and monitoring of vital signs [x] Documentation [x] Medication orders and management
[2021-09-22] MEDS ORDERED: POTASSIUM CHLORIDE 10 MEQ 10 MEQ/100 ML BAG IV SCH (08:00)
[2021-09-22] MEDS: POTASSIUM CHLORIDE ER 20 MEQ TAB PO SCH ×2 (09:18→16:56)
[2021-09-22] MEDS: amLODIPine 10 MG TAB PO SCH (09:18)
[2021-09-22] MEDS: hydroCHLOROthiazide 25 MG TAB PO SCH (09:18)
[2021-09-22] MEDS ORDERED: LACTATED RINGERS 1,000 ML IV ONE (09:30)
[2021-09-22] MEDS ORDERED: amLODIPine 10 MG TAB PO SCH (10:00)
[2021-09-22] MEDS: METOPROLOL TARTRATE 25 MG TAB PO SCH ×2 (13:02→21:39)
[2021-09-22 13:35] LABS: Creatine Kinase MB 10.6 ng/mL (0.0-4.0)
[2021-09-22 13:48] LABS: Chol/HDL Ratio 3.12 %
--- NOTE | 2021-09-22 14:43 | Consultation ---
History of Present Illness Consult date: 09/22/21 Consult reason: hypertension History of present illness: 41-year-old man with a history of hypertension, on lisinopril, amlodipine and hydrochlorothiazide. He presents to the emergency room with severe uncontrolled hypertension with blood pressure 223/132. He admits to noncompliance with his medical therapy over several months. He does not follow-up with the physician on the routine basis due to lack of medical insurance. There is no chest pain, no shortness of breath, no palpitations, no prior cardiac history. ECG is normal sinus rhythm, left axis deviation with left anterior fascicular block, left ventricle hypertrophy with nonspecific ST and T wave changes. Past History Past Medical History: hypertension Past Surgical History: Other (Leg surgery) Social history: single Family history: diabetes, hypertension Medications and Allergies Allergies Allergy/AdvReac Type Severity Reaction Status Date / Time No Known Allergies Allergy Verified 12/22/19 13:31 Home Medications Medication Instructions Recorded Confirmed Last Taken Type amLODIPine 10 mg PO DAILY #90 tab 12/22/19 09/22/21 Unknown Rx hydroCHLOROthiazide [HCTZ] 25 mg PO QDAY #90 tablet 12/22/19 09/22/21 Unknown Rx Active Meds: Active Medications Acetaminophen (Acetaminophen 325 Mg Tab) 650 mg PO Q6H PRN PRN Reason: Pain MILD(1-3)/Fever >100.5/[place] Amlodipine Besylate (Amlodipine 10 Mg Tab) 10 mg PO QDAY [facility] Last Admin: 09/22/21 09:18 Dose: 10 mg Documented by: Hydralazine HCl (Hydralazine 20 Mg/1 Ml Inj) 10 mg IV Q6H PRN PRN Reason: Hypertension Last Admin: 09/22/21 10:45 Dose: 10 mg Documented by: Hydrochlorothiazide (Hydrochlorothiazide 25 Mg Tab) 25 mg PO QDAY [facility] Last Admin: 09/22/21 09:18 Dose: 25 mg Documented by: Hydromorphone HCl (Hydromorphone 1 Mg/1 Ml Inj) 0.5 mg IV Q23H PRN PRN Reason: Pain , Severe (7-10) Metoprolol Tartrate (Metoprolol Tartrate 25 Mg Tab) 25 mg PO BID [facility] Last Admin: 09/22/21 13:02 Dose: 25 mg Documented by: Oxycodone/Acetaminophen (Oxycodone /Acetaminophen 5-325mg Tab) 1 tab PO Q16H PRN PRN Reason: Pain, Moderate (4-6) Senna (Sennosides 8.6 Mg Tab) 17.2 mg PO QHS ESTEBAN Sodium Chloride (Sodium Chloride 0.9% 10 Ml Flush Syringe) 10 ml IV BID ESTEBAN Last Admin: 09/22/21 10:13 Dose: 10 ml Documented by: Sodium Chloride (Sodium Chloride 0.9% 10 Ml Flush Syringe) 10 ml IV PRN PRN PRN Reason: LINE FLUSH Review of Systems Cardiovascular: shortness of breath, no chest pain, no orthopnea, no palpitations, no rapid/irregular heart beat, no edema, no syncope, no lightheadedness Physical Examination Vital Signs Temp Pulse Resp BP Pulse Ox 98.2 F 105 H 24 223/132 98 09/21/21 08:34 09/21/21 08:34 09/21/21 08:34 09/21/21 08:34 09/21/21 08:34 General appearance: no acute distress HEENT: Positive: PERRL Neck: Positive: neck supple Cardiac: Positive: Reg Rate and Rhythm Lungs: Positive: Decreased Breath Sounds Neuro: Positive: Grossly Intact Abdomen: Positive: Soft Male genitourinary: Positive: deferred Skin: Positive: Clear Extremities: Absent: edema Results 09/21/21 09:26 09/22/21 04:33 Cardiac Enzymes 09/22/21 Range/Units 12:33 CK-MB (CK-2) 10.6 H (0.0-4.0) ng/mL Lipids 09/22/21 Range/Units 12:33 Triglycerides 224 H (2-149) mg/dL Cholesterol 75 (50-199) mg/dL HDL Cholesterol 24 L (40-59) mg/dL Cholesterol/HDL Ratio 3.12 % Comprehensive Metabolic Panel 09/22/21 Range/Units 04:33 Sodium 139 (137-145) mmol/L Potassium 3.1 L (3.6-5.0) mmol/L Chloride 102.5 (98-107) mmol/L Carbon Dioxide 24 (22-30) mmol/L BUN 6 L (9-20) mg/dL Creatinine 0.7 L (0.8-1.3) mg/dL Glucose 109 H (75-100) mg/dL Calcium 8.5 (8.4-10.2) mg/dL EKG interpretations - Telemetry EKG Rhythm: Sinus Rhythm Assessment and Plan - Patient Problems (1) Hypertensive emergency Current Visit: Yes Status: Acute Plan to address problem: 41-year-old male who presents with severe uncontrolled hypertension due to noncompliance with his medical therapy. In addition to resuming optimal blood pressure therapy, we will get an echo for left ventricular function assessment.
--- NOTE | 2021-09-22 17:31 | Progress Note ---
Assessment and Plan Assessment and plan: This is a 41-year-old male with HTN, OHS and medical noncompliance admitted with hypertensive urgency and rhabdomyolysis Neuro: Medical noncompliance -Reorientation as needed -Avoid delirium -Maintain sleep-wake cycle -Stress need for medical compliance Cardio: Hypertensive emergency,h/o HTN -s/p Nitro drip -Started on nicardipine drip due to unresponsiveness to nitroglycerin drip in the ED -s/p nicardipine drip -Restarted home amlodipine and hydrochlorothiazide -Added metoprolol today -Blood pressure monitor per protocol -CCM consulted, appreciate recommendations -Cardiology consulted, appreciate recommendations -Echocardiogram pending -Patient complained of epigastric chest pain today and twelve-lead ECG was done -No change noted from prior -Elevation in trop noted but maybe secondary to rhabdo -will trend given no further complaints of chest pain (only one time today) -Chest CTA showed no dissection or acute abnormality, a 1.6 cm adrenal nodule noted -Abdomen/pelvis CTA shows no dissection of the aorta, 1.6 cm left adrenal nodule noted which is indeterminate Respiratory: h/o OHS -Supplemental oxygen as needed -SPO2 monitoring -Follow-up with pulmonology outpatient GI: Morbid obesity -Cardiac diet -24-hour +328 -BR: Senokot -PPI : Rhabdomyolysis, hypokalemia -Trend CK -1 L LR bolus -Potassium repleted -Trend BMP -Check magnesium Heme: Hemoconcentration -Presented with H/H of 15.5/48.9 -Lovenox subcu -Trend CBC -SCDs to bilateral lower extremity while in bed -Transfuse for hemoglobin less than 7 ID: NAD -Monitor fever and WBC curve Endo: NAD -Avoid hypoglycemia The high probability of a clinically significant, sudden or life threatening deterioration of the [cardio] system(s) required my full and direct attention, intervention and personal management. The aggregate critical care time was [60] minutes. This time is in addition to time spent performing reported procedures but includes the following: [x] Data Review and interpretation [x] Patient assessment and monitoring of vital signs [x] Documentation [x] Medication orders and management Disposition Plan: transfer to floor Total Time Spent with Patient (Minutes): 60 History Interval history: This is a 41-year-old male with HTN, OHS and medication noncompliance who presented to emergency department on 09/21 with chest discomfort, weakness, body aches, feeling unsteady over the past 3 days with persistent and intermittent symptoms of the same timeframe via private vehicle. [facility] patient had a blood pressure of 235/125 consistent with hypertensive emergency suspected secondary to medication noncompliance, lab work showed rhabdomyolysis and elevated liver function test. Patient was initiated on nitro drip with mild improvement of blood pressure and subsequently initiated on nicardipine drip and admitted to ICU with consults to critical care and cardiology. 09/22: Patient complained of epigastric discomfort and a twelve-lead EKG was done which showed no changes from prior, lipid panel elevated. Patient's CK increased to 3800 and received 1 L LR bolus. Patient weaned off of Cardene drip. Hypokalemia repleted. Hospitalist Physical - Constitutional Vitals: Temp Pulse Resp BP Pulse Ox 99 F 136 H 26 H 136/74 98 09/22/21 12:00 09/22/21 17:11 09/22/21 17:11 09/22/21 17:11 09/22/21 17:11 General appearance: Present: no acute distress - EENT Eyes: Present: PERRL, EOM intact ENT: hearing intact, clear oral mucosa, dentition normal - Neck Neck: Present: supple, normal ROM - Respiratory Respiratory effort: normal Respiratory: bilateral: diminished - Cardiovascular Rhythm: regular Heart Sounds: Present: S1 & S2. Absent: systolic murmur, diastolic murmur - Extremities Extremities: no ischemia, pulses intact, pulses symmetrical, No edema, normal temperature, normal color, Full ROM Peripheral Pulses: within normal limits - Abdominal General gastrointestinal: soft, non-tender, non-distended, normal bowel sounds - Integumentary Integumentary: Present: warm, dry - Psychiatric Psychiatric: cooperative - Neurologic Neurologic: CNII-XII intact, no focal deficits, moves all extremities, gait normal - Allied Health Allied health notes reviewed: nursing, RT, social work HEART Score - HEART Score EKG: Non-specific Age: < 45 Risk factors: > 3 risk factors or hx of atherosclerotic disease Troponin: Troponin T 0.040 ng/mL (0.00-0.029) H D 09/22/21 12:33 Troponin: < normal limit - Critical Actions Critical Actions: 4-6 pts:12-16.6% risk of adverse cardiac event. Should be admitted Results - Labs CBC & Chem 7: 09/21/21 09:26 09/22/21 04:33 Labs: Laboratory Last Values WBC 6.2 K/mm3 (4.5-11.0) 09/21/21 09:26 RBC 6.12 M/mm3 (3.65-5.03) H 09/21/21 09:26 Hgb 15.5 gm/dl (11.8-15.2) H 09/21/21 09:26 Hct 48.9 % (35.5-45.6) H 09/21/21 09:26 MCV 80 fl (84-94) L 09/21/21 09:26 MCH 25 pg (28-32) L 09/21/21 09:26 MCHC 32 % (32-34) 09/21/21 09:26 RDW 16.5 % (13.2-15.2) H 09/21/21 09:26 Plt Count 278 K/mm3 (140-440) 09/21/21 09:26 Lymph % (Auto) 29.5 % (13.4-35.0) 09/21/21 09:26 Falls % (Auto) 13.1 % (0.0-7.3) H 09/21/21 09:26 Eos % (Auto) 0.4 % (0.0-4.3) 09/21/21 09:26 Baso % (Auto) 0.9 % (0.0-1.8) 09/21/21 09:26 Lymph # (Auto) 1.8 K/mm3 (1.2-5.4) 09/21/21 09:26 Falls # (Auto) 0.8 K/mm3 (0.0-0.8) 09/21/21 09:26 Eos # (Auto) 0.0 K/mm3 (0.0-0.4) 09/21/21 09:26 Baso # (Auto) 0.1 K/mm3 (0.0-0.1) 09/21/21 09:26 Seg Neutrophils % 56.1 % (40.0-70.0) 09/21/21 09:26 Seg Neutrophils # 3.5 K/mm3 (1.8-7.7) 09/21/21 09:26 PT 16.1 Sec. (12.2-14.9) H 09/21/21 09:26 INR 1.17 (0.87-1.13) H 09/21/21 09:26 APTT 30.7 Sec. (24.2-36.6) 09/21/21 09:26 Thrombin Time 18.7 Sec. (15.1-19.6) 09/21/21 09:26 Sodium 139 mmol/L (137-145) 09/22/21 04:33 Potassium 3.1 mmol/L (3.6-5.0) L 09/22/21 04:33 Chloride 102.5 mmol/L (98-107) 09/22/21 04:33 Carbon Dioxide 24 mmol/L (22-30) 09/22/21 04:33 Anion Gap 16 mmol/L 09/22/21 04:33 BUN 6 mg/dL (9-20) L 09/22/21 04:33 Creatinine 0.7 mg/dL (0.8-1.3) L 09/22/21 04:33 Estimated GFR > 60 ml/min 09/22/21 04:33 BUN/Creatinine Ratio 9 % 09/22/21 04:33 Glucose 109 mg/dL (75-100) H 09/22/21 04:33 POC Glucose 106 mg/dL (70-105) H 09/21/21 20:25 Calcium 8.5 mg/dL (8.4-10.2) 09/22/21 04:33 Magnesium 1.90 mg/dL (1.7-2.3) 09/21/21 09:26 Total Bilirubin 0.50 mg/dL (0.1-1.2) 09/21/21 09:26 AST 337 units/L (5-40) H 09/21/21 09:26 ALT 527 units/L (7-56) H 09/21/21 09:26 Alkaline Phosphatase 134 units/L (35-129) H 09/21/21 09:26 Total Creatine Kinase 3024 units/L (55-170) H 09/22/21 12:33 CK-MB (CK-2) 10.6 ng/mL (0.0-4.0) H 09/22/21 12:33 CK-MB (CK-2) Rel Index 0.3 (0-4) 09/22/21 12:33 Troponin T 0.040 ng/mL (0.00-0.029) H D 09/22/21 12:33 Total Protein 7.5 g/dL (6.3-8.2) 09/21/21 09:26 Albumin 4.4 g/dL (3.9-5) 09/21/21 09:26 Albumin/Globulin Ratio 1.4 % 09/21/21 09:26 Triglycerides 224 mg/dL (2-149) H 09/22/21 12:33 Cholesterol 75 mg/dL (50-199) 09/22/21 12:33 LDL Cholesterol Direct 22 mg/dL (50-130) L 09/22/21 12:33 HDL Cholesterol 24 mg/dL (40-59) L 09/22/21 12:33 Cholesterol/HDL Ratio 3.12 % 09/22/21 12:33 Urine Color Yellow (Yellow) 09/21/21 Unknown Urine Turbidity Hazy (Clear) 09/21/21 Unknown Urine pH 8.0 (5.0-7.0) H 09/21/21 Unknown Ur Specific [place] 1.025 (1.003-1.030) 09/21/21 Unknown Urine Protein 100 mg/dl mg/dL (Negative) 09/21/21 Unknown Urine Glucose (UA) 50 mg/dL (Negative) 09/21/21 Unknown Urine Ketones Neg mg/dL (Negative) 09/21/21 Unknown Urine Blood Sm (Negative) 09/21/21 Unknown Urine Nitrite Neg (Negative) 09/21/21 Unknown Urine Bilirubin Neg (Negative) 09/21/21 Unknown Urine Urobilinogen < 2.0 mg/dL (<2.0) 09/21/21 Unknown Ur Leukocyte Esterase Neg (Negative) 09/21/21 Unknown Urine WBC (Auto) < 1.0 /HPF (0.0-6.0) 09/21/21 Unknown Urine RBC (Auto) 3.0 /HPF (0.0-6.0) 09/21/21 Unknown Urine Mucus Few /HPF 09/21/21 Unknown Urine Opiates Screen Negative 09/21/21 Unknown Urine Methadone Screen Negative 09/21/21 Unknown Ur Barbiturates Screen Negative 09/21/21 Unknown Ur Phencyclidine Scrn Negative 09/21/21 Unknown Ur Amphetamines Screen Negative 09/21/21 Unknown U Benzodiazepines Scrn Negative 09/21/21 Unknown Urine Cocaine Screen Negative 09/21/21 Unknown U Marijuana (THC) Screen Negative 09/21/21 Unknown Drugs of Abuse Note Disclamer 09/21/21 Unknown Farmer/IV: Voiding Method Urinal Active Medications - Current Medications Current Medications: Generic Name Dose Route Start Last Admin Trade Name Freq PRN Reason Stop Dose Admin Acetaminophen 650 mg 09/21/21 14:11 Acetaminophen 325 Mg Tab PO Q6H PRN Pain MILD(1-3)/Fever >100.5/GARDNER Amlodipine Besylate 10 mg 09/21/21 13:26 09/22/21 09:18 Amlodipine 10 Mg Tab PO 10 mg QDAY ESTEBAN Administration Enoxaparin Sodium 60 mg 09/23/21 10:00 Enoxaparin 60 Mg/0.6 Ml Inj SUB-Q QDAY [facility] Protocol Hydralazine HCl 10 mg 09/21/21 13:25 09/22/21 10:45 Hydralazine 20 Mg/1 Ml Inj IV 10 mg Q6H PRN Administration Hypertension Hydrochlorothiazide 25 mg 09/22/21 10:00 09/22/21 09:18 Hydrochlorothiazide 25 Mg Tab PO 25 mg QDAY ESTEBAN Administration Hydromorphone HCl 0.5 mg 09/21/21 14:11 Hydromorphone 1 Mg/1 Ml Inj IV Q23H PRN Pain , Severe (7-10) Metoprolol Tartrate 25 mg 09/22/21 13:00 09/22/21 13:02 Metoprolol Tartrate 25 Mg Tab PO 25 mg BID ESTEBAN Administration Oxycodone/Acetaminophen 1 tab 09/21/21 14:11 Oxycodone /Acetaminophen 5-325mg Tab PO Q16H PRN Pain, Moderate (4-6) Senna 17.2 mg 09/22/21 22:00 Sennosides 8.6 Mg Tab PO QHS ESTEBAN Sodium Chloride 10 ml 09/21/21 22:00 09/22/21 10:13 Sodium Chloride 0.9% 10 Ml Flush Syringe IV 10 ml BID ESTEBAN Administration Sodium Chloride 10 ml 09/21/21 14:11 Sodium Chloride 0.9% 10 Ml Flush Syringe IV PRN PRN LINE FLUSH
[2021-09-22 20:41] LABS: Creatine Kinase MB 8.8 ng/mL (0.0-4.0)
[2021-09-22] MEDS: SENNOSIDES 8.6 MG TAB PO SCH (21:39)
[2021-09-23 05:20] LABS: Hematocrit 49.3 % (35.5-45.6); Hemoglobin 15.8 gm/dl (11.8-15.2); Mean Corpuscular HGB Conc 32 % (32-34); Mean Corpuscular Volume 81 fl (84-94); Platelet Count 258 K/mm3 (140-440); Red Blood Count 6.08 M/mm3 (3.65-5.03); Red Cell Distribution Width 16.4 % (13.2-15.2)
[2021-09-23 05:39] LABS: Creatine Kinase MB 7.3 ng/mL (0.0-4.0)
[2021-09-23 05:44] LABS: Alanine Aminotransferase 228 units/L (7-56); Albumin 3.8 g/dL (3.9-5); BUN/Creatinine Ratio 14; Blood Urea Nitrogen 11 mg/dL (9-20); Calcium 8.9 mg/dL (8.4-10.2); Hemolysis Index 9
--- NOTE | 2021-09-23 08:49 | Progress Note ---
Assessment and Plan This is a 41-year-old male with HTN, OHS and medical noncompliance admitted with hypertensive urgency and rhabdomyolysis Hypertensive emergency,h/o HTN Morbid obesity Probable sleep apnea, STOPBANG >5 Rhabdomyolysis, hypokalemia -Blood pressure monitor, on NIcardipine, HCTZ and metoprolol -Out patient pulmonary follow up for evaluation and treatment for sleep apnea -Weight loss and life style modifications -Low sodium diet -Replete potassium, trend cardiac enzymes -VTE prophylaxis- subcut heparin -SCDs to bilateral lower extremity while in bed -Monitor fever and WBC curve Discussed care plan with nursing staff and clinical pharmacist Can transfer out of the ICU Subjective Date of service: 09/23/21 Interval history: This is a 41-year-old male with HTN, OHS and medical noncompliance admitted with hypertensive urgency and rhabdomyolysis Follow up fro hypertensive urgency Seen and examined. Vitals, labs, medications, chart reviewed. He remains off nicardipine infusion. Blood pressure control, suboptimal. he required a dose of prn IV hydrallazine overnight. Amlodipine changed to Procardia per cardiology Objective Vital Signs - 12hr 09/22/21 09/22/21 09/22/21 21:00 21:31 21:39 Temperature Pulse Rate 95 H 106 H 93 H Pulse Rate [ Dorsalis Pedis] Pulse Rate [ From Monitor] Respiratory 26 H 26 H Rate Blood Pressure 155/81 153/96 153/96 O2 Sat by Pulse 95 78 L Oximetry 09/22/21 09/22/21 09/22/21 22:00 22:30 23:00 Temperature Pulse Rate 87 85 Pulse Rate [ Dorsalis Pedis] Pulse Rate [ From Monitor] Respiratory Rate Blood Pressure 160/78 140/78 166/98 O2 Sat by Pulse 96 95 94 Oximetry 09/22/21 09/22/21 09/23/21 23:30 23:52 00:00 Temperature 97.9 F Pulse Rate 80 Pulse Rate [ 74 Dorsalis Pedis] Pulse Rate [ 74 From Monitor] Respiratory Rate Blood Pressure 154/88 143/89 O2 Sat by Pulse 98 99 96 Oximetry 09/23/21 09/23/21 09/23/21 00:11 00:30 01:00 Temperature Pulse Rate 84 94 H 85 Pulse Rate [ Dorsalis Pedis] Pulse Rate [ From Monitor] Respiratory 14 Rate Blood Pressure 143/89 148/72 163/105 O2 Sat by Pulse 97 95 100 Oximetry 09/23/21 09/23/21 09/23/21 01:30 02:00 02:30 Temperature Pulse Rate 88 74 85 Pulse Rate [ Dorsalis Pedis] Pulse Rate [ From Monitor] Respiratory 20 18 12 Rate Blood Pressure 163/98 154/91 149/96 O2 Sat by Pulse 95 94 94 Oximetry 09/23/21 09/23/21 09/23/21 03:00 03:30 03:37 Temperature 98.7 F Pulse Rate 117 H 92 H Pulse Rate [ Dorsalis Pedis] Pulse Rate [ From Monitor] Respiratory 26 H Rate Blood Pressure 180/106 146/96 O2 Sat by Pulse 97 94 Oximetry 09/23/21 09/23/21 09/23/21 04:00 04:31 05:01 Temperature Pulse Rate 85 154 H 84 Pulse Rate [ 85 Dorsalis Pedis] Pulse Rate [ 85 From Monitor] Respiratory 28 H 24 Rate Blood Pressure 147/109 155/84 167/89 O2 Sat by Pulse 99 99 Oximetry 09/23/21 09/23/21 09/23/21 05:31 06:01 06:31 Temperature Pulse Rate 92 H 169 H Pulse Rate [ Dorsalis Pedis] Pulse Rate [ From Monitor] Respiratory 18 Rate Blood Pressure 141/102 132/66 155/77 O2 Sat by Pulse 97 94 100 Oximetry 09/23/21 09/23/21 09/23/21 07:00 07:43 08:01 Temperature Pulse Rate 94 H Pulse Rate [ Dorsalis Pedis] Pulse Rate [ From Monitor] Respiratory Rate Blood Pressure 123/92 144/92 134/93 O2 Sat by Pulse 100 98 85 Oximetry Constitutional: no acute distress, alert, other (morbidly obese) Eyes: non-icteric ENT: oropharynx moist Neck: supple, no lymphadenopathy, no JVD, other (short and large neck) Effort: mildly labored Ascultation: Bilateral: clear, diminished breath sounds Cardiovascular: regular rate and rhythm (tachycardia), other (S1,S2) Gastrointestinal: normoactive bowel sounds, soft, non-tender, non-distended Integumentary: normal Extremities: no cyanosis, no edema, pink and warm, pulses normal Neurologic: normal mental status, non-focal exam, pupils equal and round, CN II- XII normal, motor strength normal and Psychiatric: mood appropriate, affect normal CBC and BMP: 09/24/21 04:21 09/24/21 04:21 ABG, PT/INR, D-dimer: PT/INR, D-dimer PT 16.1 Sec. (12.2-14.9) H 09/21/21 09:26 INR 1.17 (0.87-1.13) H 09/21/21 09:26 Abnormal lab findings: Abnormal Labs 09/21/21 09/21/21 09/21/21 09:26 09:26 09:26 RBC 6.12 H Hgb 15.5 H Hct 48.9 H MCV 80 L MCH 25 L RDW 16.5 H [place] % (Auto) 13.1 H PT 16.1 H INR 1.17 H Potassium 3.1 L Carbon Dioxide BUN 6 L Creatinine 0.7 L Glucose 123 H POC Glucose AST 337 H ALT 527 H Alkaline Phosphatase 134 H Total Creatine Kinase 2846 H CK-MB (CK-2) 9.6 H Troponin T Albumin Triglycerides LDL Cholesterol Direct HDL Cholesterol Urine pH 09/21/21 09/21/21 09/21/21 09:26 20:25 Unknown RBC Hgb Hct MCV MCH RDW [place] % (Auto) PT INR Potassium Carbon Dioxide BUN Creatinine Glucose POC Glucose 106 H AST ALT Alkaline Phosphatase Total Creatine Kinase 2889 H CK-MB (CK-2) Troponin T Albumin Triglycerides LDL Cholesterol Direct HDL Cholesterol Urine pH 8.0 H 09/22/21 09/22/21 09/22/21 04:33 12:33 19:56 RBC Hgb Hct MCV MCH RDW [place] % (Auto) PT INR Potassium 3.1 L Carbon Dioxide BUN 6 L Creatinine 0.7 L Glucose 109 H POC Glucose AST ALT Alkaline Phosphatase Total Creatine Kinase 3800 H 3024 H 2378 H CK-MB (CK-2) 10.6 H 8.8 H Troponin T 0.040 H D 0.039 H Albumin Triglycerides 224 H LDL Cholesterol Direct 22 L HDL Cholesterol 24 L Urine pH 09/23/21 09/23/21 09/23/21 04:32 04:32 04:32 RBC 6.08 H Hgb 15.8 H Hct 49.3 H MCV 81 L MCH 26 L RDW 16.4 H [place] % (Auto) PT INR Potassium Carbon Dioxide 32 H D BUN Creatinine Glucose 106 H POC Glucose AST 94 H ALT 228 H Alkaline Phosphatase Total Creatine Kinase 1630 H CK-MB (CK-2) 7.3 H Troponin T Albumin 3.8 L Triglycerides LDL Cholesterol Direct HDL Cholesterol Urine pH
[2021-09-23] MEDS: METOPROLOL TARTRATE 25 MG TAB PO SCH ×2 (09:56→21:47)
[2021-09-23] MEDS: hydroCHLOROthiazide 25 MG TAB PO SCH (09:56)
[2021-09-23] MEDS: amLODIPine 10 MG TAB PO SCH (09:57)
[2021-09-23] MEDS: ENOXAPARIN 60 MG/0.6 ML INJ SUB-Q SCH (09:57)
--- NOTE | 2021-09-23 10:21 | Electrocardiograph Report ---
[facility] Test Date: 2021-09-22 Test Time: 13:17:48 Pat Name: RIAN PRIDE Department: Room: A255 1 Gender: M Belt Fixer: GINO : 1980 Requested By: DAQUAN MARCOS Order Number: [id number] Reading MD: Darrin Sultana Measurements Intervals [place] Rate: 104 P: 30 OR: 139 QRS: -34 QRSD: 89 T: 58 QT: 341 QTc: 449 Interpretive Statements Sinus tachycardia Probable left atrial enlargement Left ventricular hypertrophy lad and lafb nonspecific st-t Compared to ECG 09/21/2021 09:20:30 Sinus rhythm no longer present ST (T wave) deviation no longer present Myocardial infarct finding no longer present Electronically Signed On 09-23-2021 10:20:37 EST by Darrin Sultana
[2021-09-23] MEDS ORDERED: NIFEdipine XL 60 MG TAB PO SCH (11:00)
[2021-09-23] MEDS ORDERED: amLODIPine 5 MG TAB PO SCH (12:00)
--- NOTE | 2021-09-23 12:51 | Progress Note ---
Assessment and Plan Assessment and plan: This is a 41-year-old male with HTN, OHS and medical noncompliance admitted with hypertensive urgency and rhabdomyolysis Neuro: Medical noncompliance -Reorientation as needed -Avoid delirium -Maintain sleep-wake cycle -Stress need for medical compliance Cardio: Hypertensive emergency,h/o HTN -s/p Nitro drip -Started on nicardipine drip due to unresponsiveness to nitroglycerin drip in the ED -s/p nicardipine drip -Restarted home hydrochlorothiazide and added metoprolol -amlodipine changed to Procardia per cardiology -Blood pressure monitoring per protocol -CCM consulted, appreciate recommendations -Cardiology consulted, appreciate recommendations -Chest CTA showed no dissection or acute abnormality, a 1.6 cm adrenal nodule noted -Abdomen/pelvis CTA shows no dissection of the aorta, 1.6 cm left adrenal nodule noted which is indeterminate Respiratory: h/o OHS -Supplemental oxygen as needed -SPO2 monitoring -Follow-up with pulmonology outpatient GI: Morbid obesity -Cardiac diet -24-hour +260 -BR: Senokot -PPI : Rhabdomyolysis, hypokalemia -Trend CK -1 L LR bolus -CK trending down -Potassium repleted -Trend BMP -Check magnesium Heme: Hemoconcentration -Presented with H/H of 15.5/48.9 -Lovenox subcu -Trend CBC -SCDs to bilateral lower extremity while in bed -Transfuse for hemoglobin less than 7 ID: NAD -Monitor fever and WBC curve Endo: NAD -Avoid hypoglycemia The high probability of a clinically significant, sudden or life threatening deterioration of the [cardio] system(s) required my full and direct attention, intervention and personal management. The aggregate critical care time was [60] minutes. This time is in addition to time spent performing reported procedures but includes the following: [x] Data Review and interpretation [x] Patient assessment and monitoring of vital signs [x] Documentation [x] Medication orders and management Disposition Plan: transfer to floor Total Time Spent with Patient (Minutes): 60 History Interval history: This is a 41-year-old male with HTN, OHS and medication noncompliance who presented to emergency department on 09/21 with chest discomfort, weakness, body aches, feeling unsteady over the past 3 days with persistent and intermittent symptoms of the same timeframe via private vehicle. Upon arrival to the emergency department patient had a blood pressure of 235/125 consistent with hypertensive emergency suspected secondary to medication noncompliance, lab work showed rhabdomyolysis and elevated liver function test. Patient was initiated on nitro drip with mild improvement of blood pressure and subsequently initiated on nicardipine drip and admitted to ICU with consults to critical care and cardiology. 09/22: Patient complained of epigastric discomfort and a twelve-lead EKG was done which showed no changes from prior, lipid panel elevated. Patient's CK increased to 3800 and received 1 L LR bolus. Patient weaned off of Cardene drip. Hypokalemia repleted. 09/23: Procardia added today by cardiology. Awaiting transfer to floor. Hospitalist Physical - Constitutional Vitals: Temp Pulse Resp BP Pulse Ox 98.9 F 103 H 13 143/77 99 09/23/21 12:00 09/23/21 12:00 09/23/21 12:00 09/23/21 12:00 09/23/21 12:00 General appearance: Present: no acute distress - EENT Eyes: Present: PERRL, EOM intact ENT: hearing intact, clear oral mucosa, dentition normal - Neck Neck: Present: normal ROM - Respiratory Respiratory effort: normal Respiratory: bilateral: diminished - Cardiovascular Rhythm: regular Heart Sounds: Present: S1 & S2. Absent: systolic murmur, diastolic murmur - Extremities Extremities: no ischemia, pulses intact, pulses symmetrical, No edema, normal temperature, normal color, Full ROM Peripheral Pulses: within normal limits - Abdominal General gastrointestinal: soft, non-tender, non-distended, normal bowel sounds - Integumentary Integumentary: Present: clear, warm, dry - Psychiatric Psychiatric: cooperative - Neurologic Neurologic: CNII-XII intact, no focal deficits, moves all extremities - Allied Health Allied health notes reviewed: nursing, RT, social work HEART Score - HEART Score EKG: Non-specific Age: < 45 Risk factors: > 3 risk factors or hx of atherosclerotic disease Troponin: Troponin T 0.017 ng/mL (0.00-0.029) 09/23/21 04:32 Troponin: < normal limit - Critical Actions Critical Actions: 4-6 pts:12-16.6% risk of adverse cardiac event. Should be admitted Results - Labs CBC & Chem 7: 09/23/21 04:32 09/23/21 04:32 Labs: Laboratory Last Values WBC 9.0 K/mm3 (4.5-11.0) 09/23/21 04:32 RBC 6.08 M/mm3 (3.65-5.03) H 09/23/21 04:32 Hgb 15.8 gm/dl (11.8-15.2) H 09/23/21 04:32 Hct 49.3 % (35.5-45.6) H 09/23/21 04:32 MCV 81 fl (84-94) L 09/23/21 04:32 MCH 26 pg (28-32) L 09/23/21 04:32 MCHC 32 % (32-34) 09/23/21 04:32 RDW 16.4 % (13.2-15.2) H 09/23/21 04:32 Plt Count 258 K/mm3 (140-440) 09/23/21 04:32 Lymph % (Auto) 29.5 % (13.4-35.0) 09/21/21 09:26 [place] % (Auto) 13.1 % (0.0-7.3) H 09/21/21 09:26 Eos % (Auto) 0.4 % (0.0-4.3) 09/21/21 09:26 Baso % (Auto) 0.9 % (0.0-1.8) 09/21/21 09:26 Lymph # (Auto) 1.8 K/mm3 (1.2-5.4) 09/21/21 09:26 [place] # (Auto) 0.8 K/mm3 (0.0-0.8) 09/21/21 09:26 Eos # (Auto) 0.0 K/mm3 (0.0-0.4) 09/21/21 09:26 Baso # (Auto) 0.1 K/mm3 (0.0-0.1) 09/21/21 09:26 Seg Neutrophils % 56.1 % (40.0-70.0) 09/21/21 09:26 Seg Neutrophils # 3.5 K/mm3 (1.8-7.7) 09/21/21 09:26 PT 16.1 Sec. (12.2-14.9) H 09/21/21 09:26 INR 1.17 (0.87-1.13) H 09/21/21 09:26 APTT 30.7 Sec. (24.2-36.6) 09/21/21 09:26 Thrombin Time 18.7 Sec. (15.1-19.6) 09/21/21 09:26 Sodium 139 mmol/L (137-145) 09/23/21 04:32 Potassium 3.7 mmol/L (3.6-5.0) 09/23/21 04:32 Chloride 98.3 mmol/L (98-107) 09/23/21 04:32 Carbon Dioxide 32 mmol/L (22-30) H D 09/23/21 04:32 Anion Gap 12 mmol/L 09/23/21 04:32 BUN 11 mg/dL (9-20) 09/23/21 04:32 Creatinine 0.8 mg/dL (0.8-1.3) 09/23/21 04:32 Estimated GFR > 60 ml/min 09/23/21 04:32 BUN/Creatinine Ratio 14 % 09/23/21 04:32 Glucose 106 mg/dL (75-100) H 09/23/21 04:32 POC Glucose 106 mg/dL (70-105) H 09/21/21 20:25 Calcium 8.9 mg/dL (8.4-10.2) 09/23/21 04:32 Phosphorus 2.70 mg/dL (2.5-4.5) 09/23/21 04:32 Magnesium 2.10 mg/dL (1.7-2.3) 09/23/21 04:32 Total Bilirubin 0.90 mg/dL (0.1-1.2) 09/23/21 04:32 AST 94 units/L (5-40) H 09/23/21 04:32 ALT 228 units/L (7-56) H 09/23/21 04:32 Alkaline Phosphatase 122 units/L (35-129) 09/23/21 04:32 Total Creatine Kinase 1630 units/L (55-170) H 09/23/21 04:32 CK-MB (CK-2) 7.3 ng/mL (0.0-4.0) H 09/23/21 04:32 CK-MB (CK-2) Rel Index 0.4 (0-4) 09/23/21 04:32 Troponin T 0.017 ng/mL (0.00-0.029) 09/23/21 04:32 Total Protein 7.5 g/dL (6.3-8.2) 09/23/21 04:32 Albumin 3.8 g/dL (3.9-5) L 09/23/21 04:32 Albumin/Globulin Ratio 1.0 % 09/23/21 04:32 Triglycerides 224 mg/dL (2-149) H 09/22/21 12:33 Cholesterol 75 mg/dL (50-199) 09/22/21 12:33 LDL Cholesterol Direct 22 mg/dL (50-130) L 09/22/21 12:33 HDL Cholesterol 24 mg/dL (40-59) L 09/22/21 12:33 Cholesterol/HDL Ratio 3.12 % 09/22/21 12:33 Urine Color Yellow (Yellow) 09/21/21 Unknown Urine Turbidity Hazy (Clear) 09/21/21 Unknown Urine pH 8.0 (5.0-7.0) H 09/21/21 Unknown Ur Specific [place] 1.025 (1.003-1.030) 09/21/21 Unknown Urine Protein 100 mg/dl mg/dL (Negative) 09/21/21 Unknown Urine Glucose (UA) 50 mg/dL (Negative) 09/21/21 Unknown Urine Ketones Neg mg/dL (Negative) 09/21/21 Unknown Urine Blood Sm (Negative) 09/21/21 Unknown Urine Nitrite Neg (Negative) 09/21/21 Unknown Urine Bilirubin Neg (Negative) 09/21/21 Unknown Urine Urobilinogen < 2.0 mg/dL (<2.0) 09/21/21 Unknown Ur Leukocyte Esterase Neg (Negative) 09/21/21 Unknown Urine WBC (Auto) < 1.0 /HPF (0.0-6.0) 09/21/21 Unknown Urine RBC (Auto) 3.0 /HPF (0.0-6.0) 09/21/21 Unknown Urine Mucus Few /HPF 09/21/21 Unknown Urine Opiates Screen Negative 09/21/21 Unknown Urine Methadone Screen Negative 09/21/21 Unknown Ur Barbiturates Screen Negative 09/21/21 Unknown Ur Phencyclidine Scrn Negative 09/21/21 Unknown Ur Amphetamines Screen Negative 09/21/21 Unknown U Benzodiazepines Scrn Negative 09/21/21 Unknown Urine Cocaine Screen Negative 09/21/21 Unknown U Marijuana (THC) Screen Negative 09/21/21 Unknown Drugs of Abuse Note Disclamer 09/21/21 Unknown Farmer/IV: Voiding Method Urinal Active Medications - Current Medications Current Medications: Generic Name Dose Route Start Last Admin Trade Name Freq PRN Reason Stop Dose Admin Acetaminophen 650 mg 09/21/21 14:11 Acetaminophen 325 Mg Tab PO Q6H PRN Pain MILD(1-3)/Fever >100.5/GARDNER Amlodipine Besylate 5 mg 09/24/21 10:00 Amlodipine 5 Mg Tab PO QDAY ESTEBAN Enoxaparin Sodium 60 mg 09/23/21 10:00 09/23/21 09:57 Enoxaparin 60 Mg/0.6 Ml Inj SUB-Q 60 mg QDAY ESTEBAN Administration Protocol Hydralazine HCl 10 mg 09/21/21 13:25 09/22/21 20:01 Hydralazine 20 Mg/1 Ml Inj IV 10 mg Q6H PRN Administration Hypertension Hydrochlorothiazide 25 mg 09/22/21 10:00 09/23/21 09:56 Hydrochlorothiazide 25 Mg Tab PO 25 mg QDAY ESTEBAN Administration Hydromorphone HCl 0.5 mg 09/21/21 14:11 Hydromorphone 1 Mg/1 Ml Inj IV Q23H PRN Pain , Severe (7-10) Metoprolol Tartrate 25 mg 09/22/21 13:00 09/23/21 09:56 Metoprolol Tartrate 25 Mg Tab PO 25 mg BID ESTEBAN Administration Nifedipine 60 mg 09/23/21 11:00 09/23/21 11:18 Nifedipine Xl 60 Mg Tab PO 60 mg QDAY ESTEBAN Administration Oxycodone/Acetaminophen 1 tab 09/21/21 14:11 Oxycodone /Acetaminophen 5-325mg Tab PO Q16H PRN Pain, Moderate (4-6) Senna 17.2 mg 09/22/21 22:00 09/22/21 21:39 Sennosides 8.6 Mg Tab PO 17.2 mg QHS ESTEBAN Administration Sodium Chloride 10 ml 09/21/21 22:00 09/23/21 09:58 Sodium Chloride 0.9% 10 Ml Flush Syringe IV 10 ml BID ESTEBAN Administration Sodium Chloride 10 ml 09/21/21 14:11 Sodium Chloride 0.9% 10 Ml Flush Syringe IV PRN PRN LINE FLUSH
--- NOTE | 2021-09-23 12:54 | Progress Note ---
Assessment and Plan - Patient Problems (1) Hypertensive emergency Current Visit: Yes Status: Acute Plan to address problem: Severe uncontrolled hypertension due to noncompliance with his medical therapy. We will get an echo for left ventricular function assessment. Will discontinue Amlodipine and use Procardia XL for optimal HTN management. Subjective Date of service: 09/23/21 Interval history: BP remains uncontrolled, 162 systolic. Objective Vital Signs Temp Pulse Pulse Pulse Resp BP Pulse Ox 09/23/21 12:00 98.9 F 81 103 H 13 143/77 96 09/23/21 11:30 86 12 143/77 96 09/23/21 11:00 84 12 164/78 53 L 09/23/21 10:30 81 16 164/78 83 L 09/23/21 10:00 164/78 77 L 09/23/21 09:56 91 H 162/87 09/23/21 09:30 85 13 162/87 99 09/23/21 09:00 92 H 145/92 100 09/23/21 08:30 90 159/75 97 09/23/21 08:01 94 H 134/93 85 09/23/21 08:00 98.8 F 84 84 99 09/23/21 07:43 144/92 98 09/23/21 07:00 123/92 100 09/23/21 06:31 169 H 155/77 100 09/23/21 06:01 92 H 18 132/66 94 09/23/21 05:31 141/102 97 09/23/21 05:01 84 24 167/89 99 09/23/21 04:31 154 H 28 H 155/84 09/23/21 04:00 85 85 85 147/109 99 09/23/21 03:37 98.7 F 09/23/21 03:30 92 H 146/96 94 09/23/21 03:00 117 H 26 H 180/106 97 09/23/21 02:30 85 12 149/96 94 09/23/21 02:00 74 18 154/91 94 09/23/21 01:30 88 20 163/98 95 09/23/21 01:00 85 14 163/105 100 09/23/21 00:30 94 H 148/72 95 09/23/21 00:11 84 143/89 97 09/23/21 00:00 97.9 F 80 143/89 96 09/22/21 23:52 74 74 99 09/22/21 23:30 154/88 98 09/22/21 23:00 85 166/98 94 09/22/21 22:30 87 140/78 95 09/22/21 22:00 160/78 96 09/22/21 21:39 93 H 153/96 09/22/21 21:31 106 H 26 H 153/96 78 L 09/22/21 21:00 95 H 26 H 155/81 95 09/22/21 20:30 109 H 17 154/87 100 09/22/21 20:01 105 H 178/106 09/22/21 20:00 99.1 F 102 H 105 H 105 H 178/106 99 09/22/21 19:30 111 H 170/107 94 09/22/21 19:21 105 H 20 159/103 97 09/22/21 19:11 113 H 25 H 149/82 97 09/22/21 19:01 125 H 29 H 149/82 98 09/22/21 18:51 110 H 16 164/101 94 09/22/21 18:41 93 H 17 173/92 97 09/22/21 18:31 104 H 16 173/92 95 09/22/21 18:21 105 H 20 164/110 95 09/22/21 18:11 108 H 13 136/74 96 09/22/21 18:01 119 H 36 H 136/74 98 09/22/21 17:51 114 H 24 136/74 100 09/22/21 17:41 118 H 30 H 136/74 99 09/22/21 17:31 118 H 29 H 136/74 100 09/22/21 17:21 115 H 16 136/74 97 09/22/21 17:11 136 H 26 H 136/74 98 09/22/21 17:01 133 H 33 H 136/74 94 09/22/21 16:51 121 H 28 H 144/78 96 09/22/21 16:41 120 H 22 163/79 97 09/22/21 16:30 97 H 26 H 163/79 99 09/22/21 16:21 95 H 15 150/82 95 09/22/21 16:11 105 H 17 154/68 95 09/22/21 16:01 95 H 13 154/68 90 09/22/21 16:00 129 H 129 H 99 09/22/21 15:51 102 H 17 164/99 99 09/22/21 15:41 108 H 30 H 145/89 81 L 09/22/21 15:31 118 H 27 H 145/89 100 09/22/21 15:21 128 H 22 140/102 99 09/22/21 15:11 104 H 17 160/95 91 09/22/21 15:01 110 H 13 160/95 100 09/22/21 14:51 135 H 21 203/96 98 09/22/21 14:41 90 7 L 182/75 98 09/22/21 14:31 110 H 14 177/77 98 09/22/21 14:21 94 H 15 177/77 97 09/22/21 14:11 105 H 11 L 162/101 100 09/22/21 14:00 115 H 18 162/101 100 09/22/21 13:51 98 H 17 136/59 100 09/22/21 13:41 96 H 16 161/86 93 09/22/21 13:30 98 H 16 161/86 95 09/22/21 13:21 94 H 10 L 147/69 97 09/22/21 13:11 118 H 36 H 121/88 96 09/22/21 13:02 125 H 121/88 09/22/21 13:01 110 H 18 166/82 96 - Physical Examination General: No Apparent Distress HEENT: Positive: PERRL Neck: Positive: neck supple Cardiac: Positive: Reg Rate and Rhythm Lungs: Positive: Decreased Breath Sounds Neuro: Positive: Grossly Intact Abdomen: Positive: Soft Extremities: Absent: edema - Labs and Meds Cardiac Enzymes 09/22/21 09/22/21 09/23/21 Range/Units 12:33 19:56 04:32 AST 94 H (5-40) units/L CK-MB (CK-2) 10.6 H 8.8 H (0.0-4.0) ng/mL 09/23/21 Range/Units 04:32 AST (5-40) units/L CK-MB (CK-2) 7.3 H (0.0-4.0) ng/mL Lipids 09/22/21 Range/Units 12:33 Triglycerides 224 H (2-149) mg/dL Cholesterol 75 (50-199) mg/dL HDL Cholesterol 24 L (40-59) mg/dL Cholesterol/HDL Ratio 3.12 % CBC 09/23/21 Range/Units 04:32 WBC 9.0 (4.5-11.0) K/mm3 RBC 6.08 H (3.65-5.03) M/mm3 Hgb 15.8 H (11.8-15.2) gm/dl Hct 49.3 H (35.5-45.6) % Plt Count 258 (140-440) K/mm3 Comprehensive Metabolic Panel 09/23/21 Range/Units 04:32 Sodium 139 (137-145) mmol/L Potassium 3.7 (3.6-5.0) mmol/L Chloride 98.3 (98-107) mmol/L Carbon Dioxide 32 H D (22-30) mmol/L BUN 11 (9-20) mg/dL Creatinine 0.8 (0.8-1.3) mg/dL Glucose 106 H (75-100) mg/dL Calcium 8.9 (8.4-10.2) mg/dL AST 94 H (5-40) units/L ALT 228 H (7-56) units/L Alkaline Phosphatase 122 (35-129) units/L Total Protein 7.5 (6.3-8.2) g/dL Albumin 3.8 L (3.9-5) g/dL
--- NOTE | 2021-09-23 14:25 | Electrocardiograph Report ---
[facility] Test Date: 2021-09-21 Test Time: 09:20:30 Pat Name: RIAN PRIDE Department: Room: A255 Gender: M Aerospace Manager: GP : [id number] Requested By: ATIYA RANDALL Order Number: [id number] Reading MD: Jeremie Meeks Measurements Intervals Brickeys Rate: 97 P: 30 NM: 151 QRS: -46 QRSD: 93 T: 94 QT: 360 QTc: 457 Interpretive Statements Sinus rhythm Probable left atrial enlargement Left anterior fascicular block Left ventricular hypertrophy Anterior Q waves, possibly due to LVH Nonspecific T abnormalities, lateral leads No previous ECG available for comparison Electronically Signed On 09-23-2021 14:25:17 EST by Jeremie Meeks
[2021-09-23] MEDS: SENNOSIDES 8.6 MG TAB PO SCH (21:47)
[2021-09-24 04:59] LABS: Hematocrit 47.3 % (35.5-45.6); Hemoglobin 15.4 gm/dl (11.8-15.2); Mean Corpuscular HGB Conc 33 % (32-34); Mean Corpuscular Volume 81 fl (84-94); Platelet Count 224 K/mm3 (140-440); Red Blood Count 5.87 M/mm3 (3.65-5.03); Red Cell Distribution Width 16.4 % (13.2-15.2)
[2021-09-24 05:15] LABS: BUN/Creatinine Ratio 19; Blood Urea Nitrogen 15 mg/dL (9-20); Calcium 8.3 mg/dL (8.4-10.2); Hemolysis Index 45
[2021-09-24] MEDS ORDERED: NIFEdipine XL 90 MG TAB PO SCH (10:00)
[2021-09-24] MEDS ORDERED: hydroCHLOROthiazide 25 MG TAB PO SCH (10:00)
[2021-09-24] MEDS ORDERED: amLODIPine 5 MG TAB PO SCH (10:00)
[2021-09-24] MEDS ORDERED: METOPROLOL TARTRATE 100 MG TAB PO SCH (10:00)
[2021-09-24] MEDS: ENOXAPARIN 60 MG/0.6 ML INJ SUB-Q SCH (10:22)
[2021-09-24] MEDS: hydroCHLOROthiazide 25 MG TAB PO SCH (10:23)
--- NOTE | 2021-09-24 12:15 | Progress Note ---
Assessment and Plan - Patient Problems (1) Hypertensive emergency Current Visit: Yes Status: Acute Plan to address problem: Severe uncontrolled hypertension, now better due to noncompliance with his medical therapy. normal LVEF by echo Continue current hypertension management. Subjective Date of service: 09/24/21 Interval history: Patient has no complaints. BP today is better, 139 systolic. Objective Vital Signs Temp Pulse Pulse Resp BP Pulse Ox 09/24/21 10:23 97 H 145/76 09/24/21 07:27 98.9 F 09/24/21 06:00 152/92 98 09/24/21 05:30 80 12 139/90 95 09/24/21 05:00 97 H 11 L 124/98 92 09/24/21 04:30 80 12 105/78 93 09/24/21 04:00 100.0 F H 85 85 12 89/31 94 09/24/21 03:30 70 17 120/65 09/24/21 03:00 82 11 L 130/104 91 09/24/21 02:30 83 18 140/106 96 09/24/21 02:00 78 13 126/76 98 09/24/21 01:30 12 149/98 97 09/24/21 01:00 136/95 96 09/24/21 00:30 87 146/96 09/24/21 00:00 101.6 F H 71 80 14 140/106 97 09/23/21 23:30 86 142/68 98 09/23/21 23:00 77 136/94 96 09/23/21 22:52 87 150/95 96 09/23/21 22:30 88 150/95 98 09/23/21 22:00 87 15 147/92 97 09/23/21 21:47 107 H 130/59 09/23/21 21:30 99 H 18 130/59 97 09/23/21 21:00 93 H 26 H 138/103 09/23/21 20:30 86 24 130/51 98 09/23/21 20:00 98.1 F 85 85 12 134/66 97 09/23/21 19:30 133/87 09/23/21 19:00 87 125/77 09/23/21 18:30 81 118/66 09/23/21 18:00 114 H 116/68 09/23/21 17:30 88 121/73 09/23/21 17:00 89 129/81 09/23/21 16:30 73 109/71 09/23/21 16:00 98.2 F 76 93 H 126/71 98 09/23/21 15:30 84 114/64 93 09/23/21 15:00 95 H 114/61 94 09/23/21 14:30 76 132/74 96 09/23/21 14:00 126/79 97 09/23/21 13:30 86 123/69 96 09/23/21 13:00 91 H 14 144/84 97 09/23/21 12:30 27 H 143/77 96 - Physical Examination General: No Apparent Distress HEENT: Positive: PERRL Neck: Positive: neck supple Cardiac: Positive: Reg Rate and Rhythm Lungs: Positive: Decreased Breath Sounds Neuro: Positive: Grossly Intact Extremities: Absent: edema - Labs and Meds CBC 09/24/21 Range/Units 04:21 WBC 7.0 (4.5-11.0) K/mm3 RBC 5.87 H (3.65-5.03) M/mm3 Hgb 15.4 H (11.8-15.2) gm/dl Hct 47.3 H (35.5-45.6) % Plt Count 224 (140-440) K/mm3 Comprehensive Metabolic Panel 09/24/21 Range/Units 04:21 Sodium 137 (137-145) mmol/L Potassium 3.5 L (3.6-5.0) mmol/L Chloride 100.9 (98-107) mmol/L Carbon Dioxide 27 (22-30) mmol/L BUN 15 (9-20) mg/dL Creatinine 0.8 (0.8-1.3) mg/dL Glucose 94 (75-100) mg/dL Calcium 8.3 L (8.4-10.2) mg/dL
[2021-09-24] MEDS ORDERED: POTASSIUM CHLORIDE ER 20 MEQ TAB PO SCH (13:00)
--- NOTE | 2021-09-24 14:25 | Progress Note ---
<PRITIDAQUAN HNikhil - Last Filed: 09/24/21 14:21> Assessment and Plan Assessment and plan: This is a 41-year-old male with HTN, OHS and medical noncompliance admitted with hypertensive urgency and rhabdomyolysis Neuro: Medical noncompliance -Reorientation as needed -Avoid delirium -Maintain sleep-wake cycle -Stress need for medical compliance Cardio: Hypertensive emergency,h/o HTN -s/p Nitro drip -Started on nicardipine drip due to unresponsiveness to nitroglycerin drip in the ED -s/p nicardipine drip -Restarted home hydrochlorothiazide -Added metoprolol and procardia (increased in dosing today) -Blood pressure monitoring per protocol -CCM consulted, appreciate recommendations -Cardiology consulted, appreciate recommendations -Chest CTA showed no dissection or acute abnormality, a 1.6 cm adrenal nodule noted -Abdomen/pelvis CTA shows no dissection of the aorta, 1.6 cm left adrenal nodule noted which is indeterminate -will need outpatient followup for findings Respiratory: h/o OHS -Supplemental oxygen as needed -SPO2 monitoring -Follow-up with pulmonology outpatient GI: Morbid obesity -Cardiac diet -24-hour -240ml -BR: Senokot -PPI : Rhabdomyolysis, hypokalemia -Trend CK -Potassium repleted -Trend BMP Heme: Hemoconcentration -Presented with H/H of 15.5/48.9 -Lovenox subcu -Trend CBC -SCDs to bilateral lower extremity while in bed -Transfuse for hemoglobin less than 7 ID: NAD -Monitor fever and WBC curve Endo: NAD -Avoid hypoglycemia The high probability of a clinically significant, sudden or life threatening deterioration of the [cardio] system(s) required my full and direct attention, intervention and personal management. The aggregate critical care time was [60] minutes. This time is in addition to time spent performing reported procedures but includes the following: [x] Data Review and interpretation [x] Patient assessment and monitoring of vital signs [x] Documentation [x] Medication orders and management Disposition Plan: transfer to floor Total Time Spent with Patient (Minutes): 60 History Interval history: This is a 41-year-old male with HTN, OHS and medication noncompliance who presented to emergency department on 09/21 with chest discomfort, weakness, body aches, feeling unsteady over the past 3 days with persistent and intermittent symptoms of the same timeframe via private vehicle. Upon arrival to the emergency department patient had a blood pressure of 235/125 consistent with hypertensive emergency suspected secondary to medication noncompliance, lab work showed rhabdomyolysis and elevated liver function test. Patient was initiated on nitro drip with mild improvement of blood pressure and subsequently initiated on nicardipine drip and admitted to ICU with consults to critical care and cardiology. 09/22: Patient complained of epigastric discomfort and a twelve-lead EKG was done which showed no changes from prior, lipid panel elevated. Patient's CK increased to 3800 and received 1 L LR bolus. Patient weaned off of Cardene drip. Hypokalemia repleted. 09/23: Procardia added today by cardiology. Awaiting transfer to floor. 09/14: Increase metoprolol and Procardia given intermittent hypotension. Still awaiting bed to floor. Potassium repleted. DERICK overnight Hospitalist Physical - Constitutional Vitals: Temp Pulse Resp BP Pulse Ox 98.2 F 73 27 H 116/68 92 09/24/21 12:15 09/24/21 14:00 09/24/21 13:00 09/24/21 14:00 09/24/21 14:00 General appearance: Present: no acute distress - EENT Eyes: Present: PERRL, EOM intact ENT: hearing intact, clear oral mucosa, dentition normal - Neck Neck: Present: supple, normal ROM - Respiratory Respiratory effort: normal Respiratory: bilateral: diminished (2/2 girth) - Cardiovascular Rhythm: regular Heart Sounds: Present: S1 & S2. Absent: systolic murmur, diastolic murmur - Extremities Extremities: no ischemia, pulses intact, pulses symmetrical, No edema, normal temperature, normal color, Full ROM Peripheral Pulses: within normal limits - Abdominal General gastrointestinal: soft, non-tender, non-distended, normal bowel sounds - Integumentary Integumentary: Present: warm, dry - Psychiatric Psychiatric: cooperative - Neurologic Neurologic: CNII-XII intact, no focal deficits, moves all extremities - Allied Health Allied health notes reviewed: nursing, RT, social work HEART Score - HEART Score EKG: Non-specific Age: < 45 Risk factors: > 3 risk factors or hx of atherosclerotic disease Troponin: Troponin T 0.017 ng/mL (0.00-0.029) 09/23/21 04:32 Troponin: < normal limit - Critical Actions Critical Actions: 4-6 pts:12-16.6% risk of adverse cardiac event. Should be admitted Results - Labs CBC & Chem 7: 09/24/21 04:21 09/24/21 04:21 Labs: Laboratory Last Values WBC 7.0 K/mm3 (4.5-11.0) 09/24/21 04:21 RBC 5.87 M/mm3 (3.65-5.03) H 09/24/21 04:21 Hgb 15.4 gm/dl (11.8-15.2) H 09/24/21 04:21 Hct 47.3 % (35.5-45.6) H 09/24/21 04:21 MCV 81 fl (84-94) L 09/24/21 04:21 MCH 26 pg (28-32) L 09/24/21 04:21 MCHC 33 % (32-34) 09/24/21 04:21 RDW 16.4 % (13.2-15.2) H 09/24/21 04:21 Plt Count 224 K/mm3 (140-440) 09/24/21 04:21 Lymph % (Auto) 29.5 % (13.4-35.0) 09/21/21 09:26 [place] % (Auto) 13.1 % (0.0-7.3) H 09/21/21 09:26 Eos % (Auto) 0.4 % (0.0-4.3) 09/21/21 09:26 Baso % (Auto) 0.9 % (0.0-1.8) 09/21/21 09:26 Lymph # (Auto) 1.8 K/mm3 (1.2-5.4) 09/21/21 09:26 [place] # (Auto) 0.8 K/mm3 (0.0-0.8) 09/21/21 09:26 Eos # (Auto) 0.0 K/mm3 (0.0-0.4) 09/21/21 09:26 Baso # (Auto) 0.1 K/mm3 (0.0-0.1) 09/21/21 09:26 Seg Neutrophils % 56.1 % (40.0-70.0) 09/21/21 09:26 Seg Neutrophils # 3.5 K/mm3 (1.8-7.7) 09/21/21 09:26 PT 16.1 Sec. (12.2-14.9) H 09/21/21 09:26 INR 1.17 (0.87-1.13) H 09/21/21 09:26 APTT 30.7 Sec. (24.2-36.6) 09/21/21 09:26 Thrombin Time 18.7 Sec. (15.1-19.6) 09/21/21 09:26 Sodium 137 mmol/L (137-145) 09/24/21 04:21 Potassium 3.5 mmol/L (3.6-5.0) L 09/24/21 04:21 Chloride 100.9 mmol/L (98-107) 09/24/21 04:21 Carbon Dioxide 27 mmol/L (22-30) 09/24/21 04:21 Anion Gap 13 mmol/L 09/24/21 04:21 BUN 15 mg/dL (9-20) 09/24/21 04:21 Creatinine 0.8 mg/dL (0.8-1.3) 09/24/21 04:21 Estimated GFR > 60 ml/min 09/24/21 04:21 BUN/Creatinine Ratio 19 % 09/24/21 04:21 Glucose 94 mg/dL (75-100) 09/24/21 04:21 POC Glucose 106 mg/dL (70-105) H 09/21/21 20:25 Calcium 8.3 mg/dL (8.4-10.2) L 09/24/21 04:21 Phosphorus 2.70 mg/dL (2.5-4.5) 09/23/21 04:32 Magnesium 2.10 mg/dL (1.7-2.3) 09/23/21 04:32 Total Bilirubin 0.90 mg/dL (0.1-1.2) 09/23/21 04:32 AST 94 units/L (5-40) H 09/23/21 04:32 ALT 228 units/L (7-56) H 09/23/21 04:32 Alkaline Phosphatase 122 units/L (35-129) 09/23/21 04:32 Total Creatine Kinase 1630 units/L (55-170) H 09/23/21 04:32 CK-MB (CK-2) 7.3 ng/mL (0.0-4.0) H 09/23/21 04:32 CK-MB (CK-2) Rel Index 0.4 (0-4) 09/23/21 04:32 Troponin T 0.017 ng/mL (0.00-0.029) 09/23/21 04:32 Total Protein 7.5 g/dL (6.3-8.2) 09/23/21 04:32 Albumin 3.8 g/dL (3.9-5) L 09/23/21 04:32 Albumin/Globulin Ratio 1.0 % 09/23/21 04:32 Triglycerides 224 mg/dL (2-149) H 09/22/21 12:33 Cholesterol 75 mg/dL (50-199) 09/22/21 12:33 LDL Cholesterol Direct 22 mg/dL (50-130) L 09/22/21 12:33 HDL Cholesterol 24 mg/dL (40-59) L 09/22/21 12:33 Cholesterol/HDL Ratio 3.12 % 09/22/21 12:33 Urine Color Yellow (Yellow) 09/21/21 Unknown Urine Turbidity Hazy (Clear) 09/21/21 Unknown Urine pH 8.0 (5.0-7.0) H 09/21/21 Unknown Ur Specific [place] 1.025 (1.003-1.030) 09/21/21 Unknown Urine Protein 100 mg/dl mg/dL (Negative) 09/21/21 Unknown Urine Glucose (UA) 50 mg/dL (Negative) 09/21/21 Unknown Urine Ketones Neg mg/dL (Negative) 09/21/21 Unknown Urine Blood Sm (Negative) 09/21/21 Unknown Urine Nitrite Neg (Negative) 09/21/21 Unknown Urine Bilirubin Neg (Negative) 09/21/21 Unknown Urine Urobilinogen < 2.0 mg/dL (<2.0) 09/21/21 Unknown Ur Leukocyte Esterase Neg (Negative) 09/21/21 Unknown Urine WBC (Auto) < 1.0 /HPF (0.0-6.0) 09/21/21 Unknown Urine RBC (Auto) 3.0 /HPF (0.0-6.0) 09/21/21 Unknown Urine Mucus Few /HPF 09/21/21 Unknown Urine Opiates Screen Negative 09/21/21 Unknown Urine Methadone Screen Negative 09/21/21 Unknown Ur Barbiturates Screen Negative 09/21/21 Unknown Ur Phencyclidine Scrn Negative 09/21/21 Unknown Ur Amphetamines Screen Negative 09/21/21 Unknown U Benzodiazepines Scrn Negative 09/21/21 Unknown Urine Cocaine Screen Negative 09/21/21 Unknown U Marijuana (THC) Screen Negative 09/21/21 Unknown Drugs of Abuse Note Disclamer 09/21/21 Unknown Farmer/IV: Voiding Method Urinal Active Medications - Current Medications Current Medications: Generic Name Dose Route Start Last Admin Trade Name Freq PRN Reason Stop Dose Admin Acetaminophen 650 mg 09/21/21 14:11 Acetaminophen 325 Mg Tab PO Q6H PRN Pain MILD(1-3)/Fever >100.5/GARDNER Enoxaparin Sodium 60 mg 09/23/21 10:00 09/24/21 10:22 Enoxaparin 60 Mg/0.6 Ml Inj SUB-Q 60 mg QDAY ESTEBAN Administration Protocol Hydralazine HCl 10 mg 09/21/21 13:25 09/22/21 20:01 Hydralazine 20 Mg/1 Ml Inj IV 10 mg Q6H PRN Administration Hypertension Hydrochlorothiazide 25 mg 09/22/21 10:00 09/24/21 10:23 Hydrochlorothiazide 25 Mg Tab PO 25 mg QDAY ESTEBAN Administration Hydromorphone HCl 0.5 mg 09/21/21 14:11 Hydromorphone 1 Mg/1 Ml Inj IV Q23H PRN Pain , Severe (7-10) Metoprolol Tartrate 100 mg 09/24/21 10:00 09/24/21 10:23 Metoprolol Tartrate 100 Mg Tab PO 100 mg BID ESTEBAN Administration Nifedipine 90 mg 09/24/21 10:00 09/24/21 10:23 Nifedipine Xl 90 Mg Tab PO 90 mg QDAY ESTEBAN Administration Oxycodone/Acetaminophen 1 tab 09/21/21 14:11 Oxycodone /Acetaminophen 5-325mg Tab PO Q16H PRN Pain, Moderate (4-6) Potassium Chloride 40 meq 09/24/21 13:00 Potassium Chloride Er 20 Meq Tab PO 09/24/21 17:00 ONCE@1300 ESTEBAN Senna 17.2 mg 09/22/21 22:00 09/23/21 21:47 Sennosides 8.6 Mg Tab PO Not Given QHS ESTEBAN Sodium Chloride 10 ml 09/21/21 22:00 09/24/21 10:23 Sodium Chloride 0.9% 10 Ml Flush Syringe IV 10 ml BID ESTEBAN Administration Sodium Chloride 10 ml 09/21/21 14:11 Sodium Chloride 0.9% 10 Ml Flush Syringe IV PRN PRN LINE FLUSH <SEBASTIAN MILLAN - Last Filed: 09/26/21 15:31> Assessment and Plan Assessment and plan: I saw and evaluated the patient. Discussed with the nurse practitioner and agree with their findings and plan as documented in this note. Hospitalist Physical - Constitutional Vitals: Temp Pulse Resp BP Pulse Ox 98.2 F 80 27 H 128/92 78 L 09/24/21 12:15 09/24/21 14:56 09/24/21 13:00 09/24/21 15:55 09/24/21 15:55 HEART Score - HEART Score Troponin: Troponin T 0.017 ng/mL (0.00-0.029) 09/23/21 04:32 Results - Labs CBC & Chem 7: 09/24/21 04:21 09/24/21 04:21 Labs: Laboratory Last Values WBC 7.0 K/mm3 (4.5-11.0) 09/24/21 04:21 RBC 5.87 M/mm3 (3.65-5.03) H 09/24/21 04:21 Hgb 15.4 gm/dl (11.8-15.2) H 09/24/21 04:21 Hct 47.3 % (35.5-45.6) H 09/24/21 04:21 MCV 81 fl (84-94) L 09/24/21 04:21 MCH 26 pg (28-32) L 09/24/21 04:21 MCHC 33 % (32-34) 09/24/21 04:21 RDW 16.4 % (13.2-15.2) H 09/24/21 04:21 Plt Count 224 K/mm3 (140-440) 09/24/21 04:21 Lymph % (Auto) 29.5 % (13.4-35.0) 09/21/21 09:26 [place] % (Auto) 13.1 % (0.0-7.3) H 09/21/21 09:26 Eos % (Auto) 0.4 % (0.0-4.3) 09/21/21 09:26 Baso % (Auto) 0.9 % (0.0-1.8) 09/21/21 09:26 Lymph # (Auto) 1.8 K/mm3 (1.2-5.4) 09/21/21 09:26 [place] # (Auto) 0.8 K/mm3 (0.0-0.8) 09/21/21 09:26 Eos # (Auto) 0.0 K/mm3 (0.0-0.4) 09/21/21 09:26 Baso # (Auto) 0.1 K/mm3 (0.0-0.1) 09/21/21 09:26 Seg Neutrophils % 56.1 % (40.0-70.0) 09/21/21 09:26 Seg Neutrophils # 3.5 K/mm3 (1.8-7.7) 09/21/21 09:26 PT 16.1 Sec. (12.2-14.9) H 09/21/21 09:26 INR 1.17 (0.87-1.13) H 09/21/21 09:26 APTT 30.7 Sec. (24.2-36.6) 09/21/21 09:26 Thrombin Time 18.7 Sec. (15.1-19.6) 09/21/21 09:26 Sodium 137 mmol/L (137-145) 09/24/21 04:21 Potassium 3.5 mmol/L (3.6-5.0) L 09/24/21 04:21 Chloride 100.9 mmol/L (98-107) 09/24/21 04:21 Carbon Dioxide 27 mmol/L (22-30) 09/24/21 04:21 Anion Gap 13 mmol/L 09/24/21 04:21 BUN 15 mg/dL (9-20) 09/24/21 04:21 Creatinine 0.8 mg/dL (0.8-1.3) 09/24/21 04:21 Estimated GFR > 60 ml/min 09/24/21 04:21 BUN/Creatinine Ratio 19 % 09/24/21 04:21 Glucose 94 mg/dL (75-100) 09/24/21 04:21 POC Glucose 106 mg/dL (70-105) H 09/21/21 20:25 Calcium 8.3 mg/dL (8.4-10.2) L 09/24/21 04:21 Phosphorus 2.70 mg/dL (2.5-4.5) 09/23/21 04:32 Magnesium 2.10 mg/dL (1.7-2.3) 09/23/21 04:32 Total Bilirubin 0.90 mg/dL (0.1-1.2) 09/23/21 04:32 AST 94 units/L (5-40) H 09/23/21 04:32 ALT 228 units/L (7-56) H 09/23/21 04:32 Alkaline Phosphatase 122 units/L (35-129) 09/23/21 04:32 Total Creatine Kinase 1630 units/L (55-170) H 09/23/21 04:32 CK-MB (CK-2) 7.3 ng/mL (0.0-4.0) H 09/23/21 04:32 CK-MB (CK-2) Rel Index 0.4 (0-4) 09/23/21 04:32 Troponin T 0.017 ng/mL (0.00-0.029) 09/23/21 04:32 Total Protein 7.5 g/dL (6.3-8.2) 09/23/21 04:32 Albumin 3.8 g/dL (3.9-5) L 09/23/21 04:32 Albumin/Globulin Ratio 1.0 % 09/23/21 04:32 Triglycerides 224 mg/dL (2-149) H 09/22/21 12:33 Cholesterol 75 mg/dL (50-199) 09/22/21 12:33 LDL Cholesterol Direct 22 mg/dL (50-130) L 09/22/21 12:33 HDL Cholesterol 24 mg/dL (40-59) L 09/22/21 12:33 Cholesterol/HDL Ratio 3.12 % 09/22/21 12:33 Urine Color Yellow (Yellow) 09/21/21 Unknown Urine Turbidity Hazy (Clear) 09/21/21 Unknown Urine pH 8.0 (5.0-7.0) H 09/21/21 Unknown Ur Specific [place] 1.025 (1.003-1.030) 09/21/21 Unknown Urine Protein 100 mg/dl mg/dL (Negative) 09/21/21 Unknown Urine Glucose (UA) 50 mg/dL (Negative) 09/21/21 Unknown Urine Ketones Neg mg/dL (Negative) 09/21/21 Unknown Urine Blood Sm (Negative) 09/21/21 Unknown Urine Nitrite Neg (Negative) 09/21/21 Unknown Urine Bilirubin Neg (Negative) 09/21/21 Unknown Urine Urobilinogen < 2.0 mg/dL (<2.0) 09/21/21 Unknown Ur Leukocyte Esterase Neg (Negative) 09/21/21 Unknown Urine WBC (Auto) < 1.0 /HPF (0.0-6.0) 09/21/21 Unknown Urine RBC (Auto) 3.0 /HPF (0.0-6.0) 09/21/21 Unknown Urine Mucus Few /HPF 09/21/21 Unknown Urine Opiates Screen Negative 09/21/21 Unknown Urine Methadone Screen Negative 09/21/21 Unknown Ur Barbiturates Screen Negative 09/21/21 Unknown Ur Phencyclidine Scrn Negative 09/21/21 Unknown Ur Amphetamines Screen Negative 09/21/21 Unknown U Benzodiazepines Scrn Negative 09/21/21 Unknown Urine Cocaine Screen Negative 09/21/21 Unknown U Marijuana (THC) Screen Negative 09/21/21 Unknown Drugs of Abuse Note Disclamer 09/21/21 Unknown Farmer/IV: Voiding Method Urinal
--- NOTE | 2021-09-24 15:36 | Discharge Summary ---
<DAQUAN MARCOSNikhil - Last Filed: 09/24/21 15:49> Providers - Providers Date of Admission: 09/21/21 14:11 Date of discharge: 09/24/21 Attending physician: SEBASTIAN MILLAN MD 09/21/21 10:48 Consult to Physician [CONS] Urgent Comment: Consulting Provider: CATINA HARP Physician Instructions: Reason For Exam: htn emergency 09/21/21 11:26 Consult to Physician [CONS] Urgent Comment: Consulting Provider: MISA MOREAU Physician Instructions: Reason For Exam: htn on nitro Primary care physician: REVIEW SCHEDULING COORDINATOR Hospitalization Condition: Stable Hospital course: This is a 41-year-old male with HTN, OHS and medication noncompliance who presented to emergency department on 09/21 with chest discomfort, weakness, body aches, feeling unsteady over the past 3 days with persistent and intermittent symptoms of the same timeframe via private vehicle. Upon arrival to the emergency department patient had a blood pressure of 235/125 consistent with hypertensive emergency suspected secondary to medication noncompliance, lab work showed rhabdomyolysis and elevated liver function test. Patient was initiated on nitro drip with mild improvement of blood pressure and subsequently initiated on nicardipine drip and admitted to ICU with consults to critical care and cardiology. On 09/22 patient complained of DISCOMFORT and a twelve-lead ECG was done which showed no changes from prior. Patient's creatinine increased to 3800 and he received 1 L LR bolus. He was also weaned off of Cardene drip and potassium was repleted. On 09/23 patient was started on cardiology. And his creatinine has been trending down. Patient blood pressure medications were adjusted today and he has better blood pressure control. Patient will be discharged home and will need to follow-up with primary care physician and cardiology within 1 to 2 weeks of discharge. Medical compliance strongly encouraged. Patient given resources for outpatient use. Patient encouraged use of good Rx to obtain medications. Assessment and plan: Neuro: Medical noncompliance -Reorientation as needed -Avoid delirium -Maintain sleep-wake cycle -Stress need for medical compliance Cardio: Hypertensive emergency,h/o HTN -s/p Nitro drip -Restarted home hydrochlorothiazide -Added metoprolol and procardia (increased in dosing today) -Blood pressure monitoring per primary care physician instructions -Critical care medicine and cardiology consulted, appreciate recommendations -Chest CTA showed no dissection or acute abnormality, a 1.6 cm adrenal nodule noted -Abdomen/pelvis CTA shows no dissection of the aorta, 1.6 cm left adrenal nodule noted which is indeterminate -will need outpatient followup for findings -09/23 echocardiogram shows LVEF 55%, left ventricular chamber size and systolic function normal, severe concentric left ventricular hypertrophy, trace to mild mitral valve regurgitation, mild tricuspid cuspid valve regurgitation, no apparent pulmonary hypertension Respiratory: h/o OHS -Supplemental oxygen as needed -SPO2 monitoring -Follow-up with pulmonology outpatient GI: Morbid obesity -Encourage dietary lifestyle modifications outpatient : Rhabdomyolysis, hypokalemia -Trend CK -On admit 2045, increased to 3800 and responded to fluids and now decreased to 1630 on discharge -Follow-up with primary care physician Heme: Hemoconcentration -Presented with H/H of 15.5/48.9 -Possibly due to OHS -Follow-up with primary care doctor ID: NAD Endo: NAD Disposition: HOME / SELF CARE / HOMELESS Final Discharge Diagnosis (Prints w/discharge instructions): Rhabdomyolysis, hypertensive emergency, medical noncompliance Time spent for discharge: 60 Core Measure Documentation - Palliative Care Palliative Care/ Comfort Measures: Not Applicable - Core Measures Any of the following diagnoses?: none Exam - Constitutional Vitals: Temp Pulse Resp BP Pulse Ox 98.2 F 73 27 H 116/68 92 09/24/21 12:15 09/24/21 14:00 09/24/21 13:00 09/24/21 14:00 09/24/21 14:00 General appearance: Present: no acute distress - EENT Eyes: Present: PERRL, EOM intact ENT: hearing intact, clear oral mucosa, dentition normal - Neck Neck: Present: normal ROM - Respiratory Respiratory effort: normal Respiratory: bilateral: diminished (Secondary to girth) - Cardiovascular Rhythm: regular Heart Sounds: Present: S1 & S2. Absent: systolic murmur, diastolic murmur - Extremities Extremities: no ischemia, pulses intact, pulses symmetrical, No edema, normal temperature, normal color Peripheral Pulses: within normal limits - Abdominal General gastrointestinal: Present: soft, non-tender, non-distended, normal bowel sounds - Integumentary Integumentary: Present: warm, dry - Musculoskeletal Musculoskeletal: strength equal bilaterally - Psychiatric Psychiatric: appropriate mood/affect, cooperative - Neurologic Neurologic: CNII-XII intact, no focal deficits, moves all extremities - Allied Health Allied health notes reviewed: nursing, RT, social work Plan Activity: advance as tolerated Diet: low fat, low cholesterol, low salt Special Instructions: record daily weights, record daily BP diary, smoking cessation [facility] [Outside[facility] - 7 Days [facility] [Outside] - 7 Days [facility] [Outside] - 7 Days [facility] [Outside] - 7 Days [facility] [Outside] - 7 Days PRIMARY CARE, [Primary Care Provider] - 3-5 Days ANDREA FIGUEROA MD [Staff Physician] - 7 Days MISA MOREAU MD [Staff Physician] - 7 Days Prescriptions: hydroCHLOROthiazide [HCTZ] 25 mg PO QDAY #30 tablet Metoprolol [Lopressor TAB] 50 mg PO QDAY #30 tablet NIFEdipine XL [Procardia Xl] 90 mg PO QDAY #30 tablet <SEBASTIAN MILLAN - Last Filed: 09/26/21 15:31> Providers - Providers Date of Admission: 09/21/21 14:11 Attending physician: SEBASTIAN MILLAN MD 09/21/21 10:48 Consult to Physician [CONS] Urgent Comment: Consulting Provider: CATINA HARP Physician Instructions: Reason For Exam: htn emergency 09/21/21 11:26 Consult to Physician [CONS] Urgent Comment: Consulting Provider: MISA MOREAU Physician Instructions: Reason For Exam: htn on nitro Primary care physician: REVIEW SCHEDULING COORDINATOR Hospitalization Hospital course: I saw and evaluated the patient. Discussed with the nurse practitioner and agree with their findings and plan as documented in this note. Exam - Constitutional Vitals: Temp Pulse Resp BP Pulse Ox 98.2 F 80 27 H 128/92 78 L 09/24/21 12:15 09/24/21 14:56 09/24/21 13:00 09/24/21 15:55 09/24/21 15:55
[2021-09-24 16:04] VITALS: BP 128/92
[2021-09-25] MEDS ORDERED: METOPROLOL TARTRATE 50 MG TAB PO SCH (10:00)
== END 2021-09-24 15:55 | disposition home or self-care (01) | DRG 558 ==
LOC: ED 08:11 → IMCU 14:11 → CC1 09-22 01:26
PROVIDERS: ADMIT Internal Medicine; ATTEND Internal Medicine
DX: M62.82 Rhabdomyolysis (principal); I16.1 Hypertensive emergency; E66.2 Morbid (severe) obesity with alveolar hypoventilation; E87.6 Hypokalemia; Z87.891 Personal history of nicotine dependence; Z83.3 Family history of diabetes mellitus; Z82.49 Family history of ischemic heart disease and other diseases of the circulatory system; Z68.41 Body mass index [BMI] 40.0-44.9, adult; Z91.19 Patient's noncompliance with other medical treatment and regimen; I10 Essential (primary) hypertension
CPT/HCPCS: 36415; 70450; 71275; 74174; 80048; 80053; 80061; 80307; 81001; 82550; 82553; 82565; 82962; 83735; 84100; 84484; 85025; 85027; 85610; 85670; 85730; 93005; 93306; 99291; 99406; G0378; J3490; Q0162; J0360; J1650; J2270; J2405; J3480; J7030; J7040; J7050; J7120; Q9967